=== PATIENT | female | born 1975 | race Caucasian/White ===

== ENCOUNTER 2016-04-08 11:54 | Outpatient (CLI) ==
[2016-04-08 12:21] LABS: BASOPHILS # (AUTO) 0.1 K/uL (0-0.2); BASOPHILS % (AUTO) 0.7 % (0.0-3.0); EOSINOPHILS # (AUTO) 0.1 K/ul (0.0-0.7); EOSINOPHILS % (AUTO) 0.8 % (0.0-7.0); HEMATOCRIT 36.6 % (37.0-47.0); HEMOGLOBIN 12.3 g/dl (12.0-16.0); IMMATURE GRANULOCYTE % (AUTO) 0.4 % (0.0-5.0); LYMPHOCYTES # (AUTO) 2.3 K/uL (0.60-3.4); LYMPHOCYTES % (AUTO) 31.6 (10.0-50.0); MEAN CORPUSCULAR HEMOGLOBIN 29.4 pg (27.0-31.0); MEAN CORPUSCULAR HGB CONC 33.6 (31.8-35.4); MEAN CORPUSCULAR VOLUME 87.4 fl (81.0-99.0); MONOCYTES # (AUTO) 0.4 K/uL (0.4-2.0); MONOCYTES % (AUTO) 5.1 (0-10); NEUTROPHILS # (AUTO) 4.5 K/ul (2.0-6.9); NEUTROPHILS % (AUTO) 61.4; PLATELET COUNT 226 10^3/uL (140-440); RED BLOOD COUNT 4.19 10^6/ul (4.20-5.40); WHITE BLOOD COUNT 7.25 K/ul (4.6-10.2)
[2016-04-08 13:00] LABS: ALBUMIN 3.6 g/dL (3.4-5.0); ALBUMIN/GLOBULIN RATIO 1.09; BILIRUBIN,TOTAL 0.48 mg/dL (0.00-1.20); BUN/CREATININE RATIO 11.95; CALCIUM 8.5 mg/dL (8.2-10.2); CHOL/HDL RATIO 3.9 (4.5-5.5); CREATININE 0.92 mg/dL (0.60-1.30); TOTAL PROTEIN 6.9 g/dL (6.4-8.2)
== END 2016-04-08 11:55 | disposition home or self-care (01) ==
LOC: LAB 11:54
PROVIDERS: ATTEND Internal Medicine
DX: E78.5 Hyperlipidemia, unspecified (principal); D64.9 Anemia, unspecified; I34.1 Nonrheumatic mitral (valve) prolapse
CPT/HCPCS: 36415; 80053; 80061; 83036; 84443; 85025

== ENCOUNTER 2016-07-02 14:38 | Observation (INO) | payer OTHER ==
[2016-07-02] MEDS ORDERED: VISTARIL INJ IM PRN (15:07)
[2016-07-02] MEDS ORDERED: TYLENOL PO PRN (15:07)
[2016-07-02] MEDS ORDERED: NITROSTAT SL PRN (15:07)
[2016-07-02] MEDS ORDERED: ATROPINE SULFATE PFS IVP PRN (15:07)
[2016-07-02] MEDS ORDERED: D5W IV PRN (15:30)
[2016-07-02] MEDS ORDERED: LIDOCAINE IV PRN (15:30)
[2016-07-02] MEDS ORDERED: LIDOCAINE HCL 1% ABBOJECT IVP PRN (15:30)
[2016-07-02 15:51] LABS: BASOPHILS # (AUTO) 0.1 K/uL (0-0.2); BASOPHILS % (AUTO) 0.8 % (0.0-3.0); EOSINOPHILS # (AUTO) 0.1 K/ul (0.0-0.7); EOSINOPHILS % (AUTO) 0.9 % (0.0-7.0); HEMATOCRIT 36.7 % (37.0-47.0); HEMOGLOBIN 12.3 g/dl (12.0-16.0); IMMATURE GRANULOCYTE % (AUTO) 0.3 % (0.0-5.0); LYMPHOCYTES % (AUTO) 40.3 (10.0-50.0); MEAN CORPUSCULAR HEMOGLOBIN 29.1 pg (27.0-31.0); MEAN CORPUSCULAR HGB CONC 33.5 (31.8-35.4); MEAN CORPUSCULAR VOLUME 86.8 fl (81.0-99.0); MONOCYTES # (AUTO) 0.5 K/uL (0.4-2.0); MONOCYTES % (AUTO) 7.1 (0-10); NEUTROPHILS # (AUTO) 3.8 K/ul (2.0-6.9); NEUTROPHILS % (AUTO) 50.6; PLATELET COUNT 246 10^3/uL (140-440); RED BLOOD COUNT 4.23 10^6/ul (4.20-5.40); WHITE BLOOD COUNT 7.49 K/ul (4.6-10.2)
[2016-07-02 16:10] VITALS: BMI 33.1
--- NOTE | 2016-07-02 16:17 | DI ---
EXAM: Chest two view, frontal and lateral views. HISTORY: Chest pain. Hypertension. COMPARISON: None available. FINDINGS: The heart size is normal. There is no pulmonary vascular congestion. The lungs are jose r. No pleural effusion or pneumothorax is seen. No acute osseous abnormality identified. Cholecys tectomy clips noted. IMPRESSION: No acute cardiopulmonary process.
[2016-07-02 16:33] LABS: ALANINE AMINOTRANSFERASE 66 U/L (12-78); ALBUMIN/GLOBULIN RATIO 1.11; ALKALINE PHOSPHATASE 76 U/L (42-98); ANION GAP 11.5; ASPARTATE AMINO TRANSFERASE 43 U/L (15-37); BLOOD UREA NITROGEN 13 mg/dL (7-18); BUN/CREATININE RATIO 12.87; CALCIUM 8.9 mg/dL (8.2-10.2); CARBON DIOXIDE 24 mmol/L (21-32); CHLORIDE 109 mmol/L (98-107); CREATINE KINASE 171 U/L; CREATININE 1.01 mg/dL (0.60-1.30); GLUCOSE 91 mg/dL (70-110); MYOGLOBIN 34 ng/ml; POTASSIUM 3.5 mmol/L (3.5-5.10); SODIUM 141 mmol/L (136-145); TOTAL PROTEIN 7.6 g/dL (6.4-8.2)
--- NOTE | 2016-07-02 16:42 | US ---
EXAM: Ultrasound bilateral carotid duplex HISTORY: Chest pain and hypertension COMPARISON: Carotid Doppler 01/07/2011 TECHNIQUE: Sonographic and color Doppler evaluation of the carotids were performed. FINDINGS: The right carotid is patent in appearance with mild atherosclerotic plaque visualized. The right ICA peak systolic velocity measures 100 cm/sec which is normal. The ICA / CCA peak systolic velocity ratio is 1.3 and ICA end-diastolic velocity is 50 cm/sec. The left carotid is pain in appearance with mild atherosclerotic plaque visualized. The left ICA peak systolic velocity measures 100 cm/sec which is normal. The left ICA / CCA peak systolic velocity ratio is 1.1 and ICA end-diastolic velocity is 50 cm/sec. Vertebral arteries demonstrate antegrade flow bilaterally. IMPRESSION: Bilateral mild atherosclerotic disease with peak systolic velocities within normal limits and no son ographic or Doppler evidence of hemodynamically significant stenosis.
[2016-07-02 16:43] LABS: CREATINE KINASE MB 1.4 ng/ml (0.0-3.6)
[2016-07-02 16:47] LABS: ADD URINE MICROSCOPIC YES; BILIRUBIN,URINE Negative (NEGATIVE); KETONES,URINE Negative (NEGATIVE); LEUKOCYTE ESTERASE ,URINE 2+ (NEGATIVE); NITRITE,URINE Negative (NEGATIVE); PH,URINE 6.5 (5-9); PROTEIN,URINE Negative (NEGATIVE); URINE, BLOOD Trace-lysed (NEGATIVE)
[2016-07-02 16:51] LABS: BACTERIA,URINE 1+ (NOT PRESENT)
[2016-07-02] MEDS: COREG PO SCH (16:59)
[2016-07-02] MEDS: KLONOPIN PO SCH (20:00)
[2016-07-02] MEDS ORDERED: LOVENOX ONE (21:54)
[2016-07-02] MEDS ORDERED: LOVENOX SUBCUT STA (21:55)
[2016-07-02 23:23] LABS: CREATINE KINASE 141 U/L; MYOGLOBIN 24 ng/ml
[2016-07-02 23:24] LABS: CREATINE KINASE MB 1.1 ng/ml (0.0-3.6)
[2016-07-03] MEDS ORDERED: DECADRON 4 MG/ML SDV IM STA (08:01)
[2016-07-03] MEDS ORDERED: LOVENOX SUBCUT SCH ×2 (09:00→21:00)
[2016-07-03] MEDS: COREG PO SCH ×2 (09:06→17:52)
[2016-07-03] MEDS: ASPIRIN EC PO SCH (09:07)
[2016-07-03] MEDS: KLONOPIN PO SCH ×2 (09:07→20:02)
[2016-07-03] MEDS: TORADOL IVP SCH ×3 (09:07→20:03)
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
--- NOTE | 2016-07-03 13:10 | PCM.PROG ---
Attending Provider: ATTENDING PROVIDER: Dr. NISSA BHAKTA DATE OF SERVICE: 07/03/16 SUBJECTIVE: This 40 year old WHITE/ F was hospitalized 07/02/16. The patient is hospitalized with chest pain, hypertension and shortness of breath. The patient has a migraine headache. This morning she had an echocardiogram and stress echo with mitral valve prolapse and normal LV contractility. Stress echocardiogram negative for ischemia. Systolic blood pressure went up to 200 with exercise. REVIEW OF SYSTEMS: CONSTITUTIONAL: No night sweats. No fatigue, malaise, lethargy. No fever or chills. HEENT: Eyes: No visual changes. No eye pain. No eye discharge. ENT: No runny nose. No epistaxis. No sinus pain. No odynophagia. No congestion. RESPIRATORY: No cough, no congestion. No hemoptysis. CARDIOVASCULAR: No angina symptoms. No CHF symptoms. No atypical chest pain for CAD. No palpitations. No shortness of breath. GASTROINTESTINAL: No abdominal pain. No nausea or vomiting. No diarrhea or constipation. No hematemesis. No hematochezia. GENITOURINARY: No urgency. No frequency. No dysuria. No hematuria. No obstructive symptoms. No discharge. No pain. No significant abnormal bleeding. MUSCULOSKELETAL: No musculoskeletal pain; no joint swelling. NEUROLOGICAL: Awake, alert, oriented to time, place and person. Migraine headache. No neck pain. No syncope. No seizures. No dizziness. PSYCHIATRIC: Not anxious. No depression. No suicidal thoughts. No homicidal thoughts. SKIN: No rash. No lesions. No wounds. ENDOCRINE: No unexplained weight loss. No weight gain. HEMATOLOGIC/LYMPHATIC: No anemia. No purpura. No petechiae. No prolonged or excessive bleeding. No palpable lymph nodes. PHYSICAL EXAMINATION: GENERAL: The patient is awake, alert and oriented, lying/sitting in bed in no distress. VITAL SIGNS: Temperature 97.5 F, Pulse 66, Respiratory Rate 16, BP 126/86, Pulse Ox 98% HEENT: Head normocephalic, atraumatic. Eyes: Extraocular muscles are intact. Pupils are equal, round and reactive to light and accommodation. Ears: No lesions. Nose appeared normal. Throat: No exudate or erythema. NECK: Supple. No JVD, no carotid bruit. No lymphadenopathy or thyromegaly. LUNGS: Clear to auscultation. Percussion note normal. Chest symmetrical. HEART: S1, S2, no S3. No murmurs. No cyanosis or clubbing. No ascites. Pulses: Dorsalis pedis and posterior tibial pulses +1 to +2 both sides. ABDOMEN: Soft. Non-tender. Bowel sounds active. No CVA tenderness. No mass felt. EXTREMITIES: No edema. Full range of motion of all extremities, equal. NEUROLOGIC: No focal deficit. Cranial nerves II through XII are grossly intact. Migraine headache, no double vision or headache. SKIN: Not dry. Intact. Turgor-normal. LYMPHATIC: No palpable lymph nodes/no lymphedema. MUSCULOSKELETAL: Normal joints with no swelling. Muscle tone is normal. LAB REVIEW: 07/02/16 15:40 07/02/16 15:40 07/02/16 22:49: Total Creatine Kinase 141, CK-MB (CK-2) 1.1, CK-MB (CK-2) % 0.88999, Myoglobin 24, Troponin I < 0.0100 07/02/16 15:40: WBC 7.49, RBC 4.23, Hgb 12.3, Hct 36.7 L, MCV 86.8, MCH 29.1, MCHC 33.5, RDW Coeff of Jennyfer 13.6, Plt Count 246, Immature Gran % (Auto) 0.3, Neut % (Auto) 50.6, Lymph % (Auto) 40.3, Barnwell % (Auto) 7.1, Eos % (Auto) 0.9, Baso % (Auto) 0.8, Immature Gran # (Auto) 0.0, Neut # 3.8, Lymph # 3.0, Barnwell # 0.5, Eos # 0.1, Baso # 0.1, D-Dimer (Manual) 342.60, Sodium 141, Potassium 3.5, Chloride 109 H, Carbon Dioxide 24, Anion Gap 11.5, BUN 13, Creatinine 1.01, Estimated GFR (MDRD) 61.00, BUN/Creatinine Ratio 12.87, Glucose 91, Calcium 8.9 , Total Bilirubin 0.30, AST 43 H, ALT 66, Alkaline Phosphatase 76, Total Creatine Kinase 171, CK-MB (CK-2) 1.4, CK-MB (CK-2) % 0.12980, Myoglobin 34, Troponin I < 0.0100, B-Natriuretic Peptide 26, Total Protein 7.6, Albumin 4.0, Globulin 3.6, Albumin/Globulin Ratio 1.11, TSH 0.897, Free T4 1.02 07/02/16 15:20: Urine Color Yellow, Urine Clarity Clear, Urine pH 6.5, Ur Specific Raymond 1.020, Urine Protein Negative, Urine Glucose (UA) Negative, Urine Ketones Negative, Urine Blood Trace-lysed, Urine Nitrite Negative, Urine Bilirubin Negative, Urine Urobilinogen 0.2, Ur Leukocyte Esterase 2+, Urine Microscopic RBC 5-10, Urine Microscopic WBC 5-10, Ur Squamous Epith Cells 5-10, Urine Bacteria 1+ ASSESSMENT: 1. Migraine headache 2. Chest pain seems noncardiac 3. BMI 33 4. Sedentary lifestyle 5. Family history of heart disease 6. Dyslipidemia 7. Hypertension PLAN: 1. D. dimer negative 2. Toradol 30 mg IV 3. 1 cc Decadron 4. Will also do MRI of brain for patient's history of questionable seizure disorder a long time ago and headaches with dizziness. Plan and coordination of the patient's care discussed in the presence of [employer] Operator and nurse. EDUCATION: Education carried out about CAD risk factors and how to modify. May have to add angiotensin receptor akira along with Coreg. CONDITION: Stable SCRIBED BY: TIARA DSOUZA Nip Wrapper scribed while in presence of service performed by Dr. NISSA BHAKTA on 07/03/16 ([id number])
--- NOTE | 2016-07-03 14:22 | MRI ---
EXAM: MRI brain without and with IV contrast. DATE: 07/03/2016. HISTORY: Headaches, elevated blood pressure. Patient reports history of seizures. TECHNIQUE: Sagittal T1W pre and postcontrast, axial T2W, axial FLAIR, axial T1W pre and postcontras t, axial DWI, coronal T1W postcontrast, and coronal T2W GRE sequences of the brain were obtained usi ng 1.2 Tresa magnet. Additional coronal thin slice FLAIR sequence through the temporal lobes was pe rformed. CONTRAST: Omniscan - 13 ml IV. COMPARISON: MRI brain 05/02/2011. FINDINGS: The ventricles, cisterns, and subarachnoid spaces are normal in size and configuration. No midline shift, mass effect or abnormal extra-axial fluid collection is apparent. No acute infarc t, hemorrhage or enhancing neoplasm is identified. No abnormal contrast enhancement is identified i n the brain, meninges or dura. Minimal T2W/FLAIR hyperintensity is observed in the white matter abu tting the anterior horn of each lateral ventricle. A few 2-4 mm, T2W/FLAIR bright foci without abno rmal enhancement are scattered in the subcortical white matter of both frontal lobes. The liu - wh ite matter differentiation is normal. No migration or diverticulation abnormality is identified. T he amygdala, hippocampus, and parahippocampal gyri are symmetric and normal bilaterally. The fornic es and hypothalamus appear normal. The 7th/8th cranial nerve complexes, cerebellopontine angles, br ainstem, and visible cervical spinal cord are normal. There is approximately 2 mm right cerebellar tonsillar ectopia. The pituitary gland is normal in size and has normal signal. Corpus callosum is normal in size and configuration. Flow voids are present in the major intracranial arteries and in the dural venous sinuses. No aneurysm, AVM or dural venous sinus thrombosis is apparent. No orbit abnormality is identified. A small number of bilateral mastoid air cells demonstrate T2W bright, T 1W intermediate signal without abnormal hyperenhancement, similar to April 2011 . There is no acute sinusitis. No neck mass or lymphadenopathy is detected. No calvarial neoplasm or acute fracture i s evident. T1W bone marrow signal is similar to that of the intervertebral discs and muscles. IMPRESSIONS: 1. No acute infarct, hemorrhage, enhancing mass, or hydrocephalus 2. Minor low-lying right cerebellar tonsil. No Chiari 1 malformation. 3. Minimal, nonspecific cerebral white matter disease, unchanged. 4. No mesial temporal sclerosis detected. 5. Chronic, small bilateral mastoid effusions. 6. T1W bone marrow signal is borderline dark. DDX: Normal variation vs red marrow reconversion. Correlate for anemia.
[2016-07-03] MEDS ORDERED: ZOFRAN 4 MG/2 ML ONE (18:09)
[2016-07-03] MEDS ORDERED: ZOFRAN 4 MG/2 ML IVP STA ×2 (18:10→22:24)
[2016-07-03] MEDS: MORPHINE 4 MG/ML SYRINGE IVP PRN ×2 (18:15→22:23)
[2016-07-04] MEDS ORDERED: ZOFRAN 4 MG/2 ML IVP PRN (02:13)
[2016-07-04] MEDS: MORPHINE 4 MG/ML SYRINGE IVP PRN (02:24)
[2016-07-04] MEDS: TORADOL IVP SCH ×2 (05:43→13:00)
[2016-07-04] MEDS ORDERED: MILK OF MAGNESIA PO PRN (08:08)
[2016-07-04] MEDS ORDERED: PROTONIX PO SCH (08:30)
[2016-07-04] MEDS: ASPIRIN EC PO SCH (08:47)
[2016-07-04] MEDS: COREG PO SCH (08:47)
[2016-07-04] MEDS: KLONOPIN PO SCH (08:47)
[2016-07-04] MEDS ORDERED: COLACE PO SCH (09:00)
--- NOTE | 2016-07-04 10:47 | ECHO2D ---
Date of Exam: 07/03/16 Ordering Physician: NISSA BHAKTA Reason for Echo: CHEST PAIN, HTN, MVP, PATENT FORAMON OVALE M-Mode Normal Adult Results LV Dimensions Normal Adult Results AoV Opening excursions >1.6 >1.6 LVEDD-base- 3.5-5.8 3.9 Ao root dimensions 2.0-3.7 2.8 LVESD-base- 3.1-4.6 L. Atrium dimensions 1.9-3.8 3.5 Post. Wall thickness 0.8-1.1 0.9 IV septum (thickness) 0.7-1.2 0.9 Post. Wall excursion 0.72-1.3 NORMAL Septal motion NORMAL Systolic motion R. Ventricular cavity 1.5-2.0 NORMAL LVEF 60% >50% Paradoxical septal wall motion NORMAL 2-D : MITRAL VALVE PROLAPSE NOTED LEFT PARASTERNAL LONG AXIS VIEW AND APICAL FOUR CHAMBER VIEW--NORMAL LEFT VENTRICLE CONTRACTILITY--NO EFFUSION, NO THROMBUS , NORMAL LEFT VENTRICLE AND LEFT ATRIAL SIZE M-MODE: MV: MITRAL VALVE PROLAPSE LATE SYSTOLIC AV: NORMAL TV: NORMAL PV: NORMAL CHAMBER SIZE: NORMAL WALL MOTION: NORMAL PERICARDIUM: NORMAL INTERPRETATION: 1. MITRAL VALVE PROLAPSE LATE SYSTOLIC, OTHERWISE ALL OTHER VALVES NORMAL 2. NORMAL LEFT VENTRICULAR CONTRACTILITY 3. NORMAL LEFT ATRIAL AND LEFT VENTRICLE SIZE MTDD
--- NOTE | 2016-07-04 10:55 | STRESSECHO ---
Date of Test: 07/03/16 Reason for Exam: CHEST PAIN, HTN, MVP, PFO Ordering Physician: NISSA BHAKTA Current Medications: KLONOPIN, COREG, LOVENOX Current Medications: KLONOPIN, COREG, LOVENOX Resting EKG: SINUS RHYTHM/NO ACUTE CHANGES Target Heart Rate: 153/181 STAGE MPH/GRADE HEART RATE BPM BLOOD PRESSURE mmhg RHYTHM S-T SEGMENT +/- UP DOWN SYMPTOMS,COMMENTS At Rest 80 130/88 SR X NONE 1 1.7/10% 118 180/96 SR X NONE 2 2.5/12% 3 3.4/14% 4 4.2/16% 5 5.0/18% Immediately after 146 200/88 SR X FATIGUE Durations of Exercise: 4:58 Maximum Heart Rate Reached: 146 Reason for Termination: FATIGUE 5 MIN POST EXERCISE: HR 100 BPM, BP 152/84 MMHG, SR, +/- INTERPRETATION: 99% OXYGEN SATURATION WITH EXERCISE ON ROOM AIR 1. TEST NEGATIVE FOR ISCHEMIC ST-T WAVE CHANGES 2. NO CHEST PAIN OR CHEST DISCOMFORT 3. NO ARRHYTHMIAS 4. BLOOD PRESSURE RESPONSE: NORMAL NORMAL LEFT VENTRICULAR CONTRACTILITY--RESTING AND POST EXERCISE MTDD
--- NOTE | 2016-07-04 10:58 | ECHOSTRESS ---
Date of Exam: 07/03/16 Ordering Physician: NISSA BHAKTA Reason for Echo: CHEST PAIN, MVP, PFO, HTN, STRESS TEST--NO ISCHEMIA M-Mode Normal Adult Results LV Dimensions Normal Adult Results AoV Opening excursions >1.6 LVEDD-base- 3.5-5.8 Ao root dimensions 2.0-3.7 LVESD-base- 3.1-4.6 L. Atrium dimensions 1.9-3.8 Post. Wall thickness 0.8-1.1 IV septum (thickness) 0.7-1.2 Post. Wall excursion 0.72-1.3 Septal motion Systolic motion R. Ventricular cavity 1.5-2.0 LVEF 60% Paradoxical septal wall motion 2-D: NORMAL LEFT VENTRICULAR CONTRACTILITY--RESTING AND POST EXERCISE M-MODE: MV: AV: TV: PV: CHAMBER SIZE: WALL MOTION: NORMAL LEFT VENTRICULAR CONTRACTILITY--RESTING AND POST EXERCISE PERICARDIUM: INTERPRETATION: 1. NORMAL LEFT VENTRICULAR CONTRACTILITY--RESTING AND POST EXERCISE MTDD
[2016-07-04 14:58] VITALS: BP 125/73; TEMP 98
--- NOTE | 2016-07-08 13:31 | PN ---
DATE OF SERVICE: 07/04/16 DISCHARGE NOTE SUBJECTIVE: The patient is a 40 year old white female hospitalized with chest pain and hypertension. The patient's work up for chest pain is negative for coronary insufficiency. The patient is feeling a lot better. Her stress echo was negative for ischemia. Her echo showed mitral valve prolapse. Blood pressure is under control and in fact it is on the lower side. She has been restarted on Coreg 6.25mg twice a day. The patient's present problem is migraine headache which has been brought under control with Morphine, IV Toradol, IV Decadron and feeling somewhat better but still has a migraine headaches. REVIEW OF SYSTEMS: CONSTITUTIONAL: No night sweats. No fatigue, malaise, lethargy. No fever or chills. HEENT: Eyes: No visual changes. No eye pain. No eye discharge. ENT: No runny nose. No epistaxis. No sinus pain. No sore throat. No odynophagia. No congestion. RESPIRATORY: No cough, no congestion. No hemoptysis. CARDIOVASCULAR: No angina symptoms. No CHF symptoms. No atypical chest pain for CAD. No palpitations. No shortness of breath. GASTROINTESTINAL: No abdominal pain. No nausea or vomiting. No diarrhea or constipation. No hematemesis. No hematochezia. GENITOURINARY: No urgency. No frequency. No dysuria. No hematuria. No obstructive symptoms. No discharge. No pain. No significant abnormal bleeding. MUSCULOSKELETAL: No musculoskeletal pain; no joint swelling. NEUROLOGICAL: Migraine headache. No neck pain. No syncope. No seizures. No dizziness. PSYCHIATRIC: Not anxious. No depression. No suicidal thoughts. No homicidal thoughts. SKIN: No rash. No lesions. No wounds. ENDOCRINE: No unexplained weight loss. No weight gain. HEMATOLOGIC/LYMPHATIC: No anemia. No purpura. No petechiae. No prolonged or excessive bleeding. No palpable lymph nodes. PHYSICAL EXAMINATION: GENERAL: The patient is oriented to time, place and person. VITAL SIGNS: Temperature 97.8, pulse 67, respiratory rate 12, blood pressure 99 /65 and pulse ox 98%. HEENT: Head normocephalic, atraumatic. Eyes: Extraocular muscles are intact. Pupils are equal, round and reactive to light and accommodation. Ears: No lesions. Nose appeared normal. Throat: No exudate or erythema. NECK: Supple. No JVD, no carotid bruit. No lymphadenopathy or thyromegaly. LUNGS: Clear to auscultation. Percussion note normal. Chest symmetrical. HEART: S1, S2, no S3. No murmurs. No cyanosis or clubbing. No ascites. Pulses: Dorsalis pedis and posterior tibial pulses +1 to +2 both sides. ABDOMEN: Soft. Nontender. Bowel sounds active. No CVA tenderness. No mass felt. EXTREMITIES: No edema. Full range of motion of all extremities, equal. NEUROLOGIC: No focal deficit. Cranial nerves II through XII are grossly intact. No headache, no double vision or headache. SKIN: Not dry. Intact. Turgor - normal. LYMPHATIC: No palpable lymph nodes/no lymphedema. MUSCULOSKELETAL: Normal joints with no swelling. Muscle tone is normal. LABS: Hgb 12.3, hct 36.7, WBC 7,400 normal differential, creatinine1 , BUN 13, potassium 3.5, D-dimer negative, T4 TSH normal, BNP 26, CK-MB negative. ASSESSMENT: 1.Chest pain likely etiology muscular skeletal, discuss with the patient coronary artery disease and risk factors and how to modify them. 2. Migraine head aches, The patient strongly advise to get followup again with Dr. Sesay who is a neurologist who had seen her for seizure disorder more than 5 years ago. She has declined for now 3. Hypertension, the patient is advised DASH diet and loose weight; BMI is 33 ideal should be 33 plus or minus 2. Weight loss diet discussed with the patient. 4. Fibromyalgia and exercise. Advised that patient needs to exercise 30 to 60 minute a day, 5 days a week. 5. Anxiety disorder, the patient is on Klonopin by Vicente Verde at [facility]. Advised to followup with Dr[facility] at [place]. PLAN: 1. The patient will be discharged home 2. New medication will be Coreg 6.25mg twice a day and baby Aspirin one a day 3. I will see her in 5-7 days. CONDITION: Stable. TIME SPENT: More than 30 minutes. Plan and coordination of the patient's care discussed in the presence of nurse. JUMA
--- NOTE | 2016-07-08 13:37 | DS ---
DATE OF SERVICE: 07/04/16 FINAL DIAGNOSIS: 1.Chest pain likely etiology muscular skeletal, discuss with the patient coronary artery disease and risk factors and how to modify them. 2. Migraine head aches, The patient strongly advise to get followup again with Dr. Sesay who is a neurologist who had seen her for seizure disorder more than 5 years ago. She has declined for now 3. Hypertension, the patient is advised DASH diet and loose weight; BMI is 33 ideal should be 33 plus or minus 2. Weight loss diet discussed with the patient. 4. Fibromyalgia and exercise. Advised that patient needs to exercise 30 to 60 minute a day, 5 days a week. 5. Anxiety disorder, the patient is on Klonopin by Vicente Verde at [facility]. Advised to followup with Dr. [facility] at [place]. DISCHARGE INSTRUCTIONS: Discharge the patient home. Instruction to come back in 5-7 days on followup. MEDICATIONS AT DISCHARGE: Klonopin 2mg PO daily PRN Coreg 6.25mg PO twice a day NEW PRESCRIPTIONS: Coreg 6.25mg PO twice a day Baby Aspirin DIET INSTRUCTIONS: As tolerated ACTIVITY: As tolerated SMOKING: Never Smoker DISEASE SPECIFIC EDUCATION: Migraine headaches New medication Followup Weight loss DASH diet HOSPITAL COURSE: The patient is a 40 year old white female hospitalized with chest pain and hypertension. The patient's work up for chest pain is negative for coronary insufficiency. The patient is feeling a lot better. Her stress echo was negative for ischemia. Her echo showed mitral valve prolapse. Blood pressure is under control and in fact it is on the lower side. She has been restarted on Coreg 6.25mg twice a day. The patient's present problem is migraine headache which has been brought under control with Morphine, IV Toradol, IV Decadron and feeling somewhat better but still has a migraine headaches. TIME SPENT: More than 60 minutes. MTDD
== END 2016-07-04 16:17 | disposition home or self-care (01) ==
LOC: MEDSURG B 14:38
PROVIDERS: ADMIT Internal Medicine; ATTEND Internal Medicine
DX: R07.89 Other chest pain (principal); G43.909 Migraine, unspecified, not intractable, without status migrainosus; I34.1 Nonrheumatic mitral (valve) prolapse; R06.02 Shortness of breath; I10 Essential (primary) hypertension; M79.7 Fibromyalgia; F41.9 Anxiety disorder, unspecified; G40.909 Epilepsy, unspecified, not intractable, without status epilepticus; Z82.49 Family history of ischemic heart disease and other diseases of the circulatory system; Z68.33 Body mass index [BMI] 33.0-33.9, adult; Z72.3 Lack of physical exercise; Z79.899 Other long term (current) drug therapy
CPT/HCPCS: 36415; 80053; 81001; 82550; 82553; 83874; 83880; 84439; 84443; 84484; 85025; 85379; 87086; 93005; 93010; 96372; 96374; 96375; 96376

== ENCOUNTER 2016-11-05 12:03 | Outpatient (CLI) ==
[2016-11-05 12:27] LABS: BASOPHILS # (AUTO) 0.1 K/uL (0-0.2); BASOPHILS % (AUTO) 0.9 % (0.0-3.0); EOSINOPHILS # (AUTO) 0.1 K/ul (0.0-0.7); EOSINOPHILS % (AUTO) 0.9 % (0.0-7.0); HEMATOCRIT 38.1 % (37.0-47.0); HEMOGLOBIN 12.7 g/dl (12.0-16.0); IMMATURE GRANULOCYTE % (AUTO) 0.3 % (0.0-5.0); LYMPHOCYTES # (AUTO) 2.7 K/uL (0.60-3.4); LYMPHOCYTES % (AUTO) 36.4 (10.0-50.0); MEAN CORPUSCULAR HEMOGLOBIN 29.3 pg (27.0-31.0); MEAN CORPUSCULAR HGB CONC 33.3 (31.8-35.4); MEAN CORPUSCULAR VOLUME 87.8 fl (81.0-99.0); MONOCYTES # (AUTO) 0.4 K/uL (0.4-2.0); MONOCYTES % (AUTO) 5.6 (0-10); NEUTROPHILS # (AUTO) 4.2 K/ul (2.0-6.9); NEUTROPHILS % (AUTO) 55.9; PLATELET COUNT 262 10^3/uL (140-440); RED BLOOD COUNT 4.34 10^6/ul (4.20-5.40); WHITE BLOOD COUNT 7.49 K/ul (4.6-10.2)
[2016-11-05 13:31] LABS: ALBUMIN 3.9 g/dL (3.4-5.0); ANION GAP 14.5; BILIRUBIN,TOTAL 0.29 mg/dL (0.00-1.20); BUN/CREATININE RATIO 16.47; CALCIUM 9.4 mg/dL (8.2-10.2); CHOL/HDL RATIO 5.6 (4.5-5.5); CREATININE 0.85 mg/dL (0.60-1.30); POTASSIUM 4.5 mmol/L (3.5-5.10); TOTAL PROTEIN 7.8 g/dL (6.4-8.2)
== END 2016-11-05 12:04 | disposition home or self-care (01) ==
LOC: LAB 12:03
PROVIDERS: ATTEND Internal Medicine
DX: E78.5 Hyperlipidemia, unspecified (principal); I10 Essential (primary) hypertension; E66.9 Obesity, unspecified
CPT/HCPCS: 36415; 80053; 80061; 82306; 82607; 83036; 84443; 85025

== ENCOUNTER 2017-03-13 19:03 | Observation (INO) ==
[2017-03-13] MEDS ORDERED: VISTARIL INJ IM PRN (19:22)
[2017-03-13] MEDS ORDERED: ATROPINE SULFATE PFS IVP PRN (19:22)
[2017-03-13] MEDS ORDERED: TYLENOL PO PRN (19:22)
[2017-03-13] MEDS ORDERED: NITROSTAT SL PRN (19:22)
--- NOTE | 2017-03-13 20:38 | DI ---
EXAM: Single view of the chest. History: Chest pain. Comparison: Chest radiograph 07/02/2016 Findings: Heart size is normal. No focal consolidation. No appreciable pleural fluid and no pneumo thorax. No acute osseous abnormalities. Impression: No acute cardiopulmonary process.
[2017-03-13 20:59] VITALS: BMI 29.9
[2017-03-13] MEDS ORDERED: NON-FORMULARY MEDICATION (Clonazepam [Klonopin] 1 MG) PO SCH (21:00)
[2017-03-13] MEDS ORDERED: PROZAC PO SCH (21:00)
[2017-03-13] MEDS ORDERED: KLONOPIN ONE (22:05)
[2017-03-13] MEDS ORDERED: PROZAC ONE (22:06)
[2017-03-14] MEDS: ASPIRIN EC PO SCH (08:45)
[2017-03-14] MEDS: COREG PO SCH ×2 (08:45→16:42)
[2017-03-14] MEDS ORDERED: KLONOPIN PO SCH ×2 (09:00→21:00)
[2017-03-14] MEDS ORDERED: ASPIRIN EC PO SCH (09:00)
[2017-03-14] MEDS ORDERED: NON-FORMULARY MEDICATION (Clonazepam [Klonopin] 0.5 MG) PO SCH (09:00)
--- NOTE | 2017-03-14 10:22 | US ---
EXAM: ULTRASOUND CAROTID DUPLEX, BILATERAL HISTORY: Headache, dizziness FINDINGS: Pérez-scale ultrasound, color Doppler and spectral analysis was performed. Velocities are in meters per second. By pérez scale and color Doppler imaging, there appears to be only minimal intimal thickening and scat tered atherosclerotic plaque in both carotid systems, including the bulbs and internal carotid arteri es. RIGHT: External carotid artery peak systolic velocity: 0.8 Common carotid artery peak systolic velocity/end diastolic velocity: 0.9/0.3 Internal carotid artery peak systolic velocity: 0.8 ICA/CCA peak systolic velocity ratio: 1.0 ICA end diastolic velocity: 0.3 LEFT: External carotid artery peak systolic velocity: 0.7 Common carotid artery peak systolic velocity/end diastolic velocity: 0.99/0.3 Internal carotid artery peak systolic velocity: 0.7 ICA/CCA peak systolic velocity ratio: 1.0 ICA end diastolic velocity: 0.3 The right and left vertebral arteries were antegrade. IMPRESSION: 1. By pérez scale and color Doppler imaging, there appears to be only minimal intimal thickening and scattered atherosclerotic plaque in both carotid systems, including the bulbs and internal carotid ar teries. 2. Internal carotid artery peak systolic velocities and ICA/CCA peak systolic velocity ratios indica te no hemodynamically significant stenosis bilaterally. 3. Both vertebral arteries were antegrade.
--- NOTE | 2017-03-14 10:38 | MRI ---
EXAM: MRI brain without and with IV contrast. DATE: 03/14/2017. HISTORY: Dizziness. Weight loss. Family history of cancer. TECHNIQUE: Sagittal T1W pre and postcontrast, axial T2W, axial FLAIR, axial T1W pre and postcontrast , axial DWI, coronal T1W postcontrast, and coronal T2W GRE sequences of the brain were obtained using 1.2 Tresa magnet. CONTRAST: Omniscan - 13 ml IV. COMPARISON: CT head 01/06/2011. MRI brain 07/03/2016. FINDINGS: The ventricles, cisterns, and subarachnoid spaces are normal in size and configuration. N o midline shift, mass effect or abnormal extra-axial fluid collection is apparent. No acute infarct, hemorrhage or enhancing neoplasm is identified. No abnormal contrast enhancement is identified in t he brain, meninges or dura. Minor T2W/FLAIR hyperintensity is observed in the white matter abutting each lateral ventricle. A handful of 2-4 mm diameter, T2W/FLAIR bright, non-enhancing foci scattered in the bilateral frontal lobe subcortical white matter is similar to June 2016. The liu - white mat ter differentiation is normal. No migration or diverticulation abnormality is identified. The amygd ala, hippocampus, and parahippocampal gyri are similar bilaterally. The 7th/8th cranial nerve comple xes, cerebellopontine angles, brainstem, and visible cervical spinal cord are normal. There is appro ximate 1.5 mm right cerebellar tonsillar ectopia. The pituitary gland is normal in size and signal. Corpus callosum is normal in size and configuration. Flow voids are present in the major intracrani al arteries and in the dural venous sinuses. No aneurysm, AVM or dural venous sinus thrombosis is ap parent. No orbit abnormality is identified. Right mastoid air cells are unremarkable. A few inferi or left mastoid air cells have T2W bright, T1W intermediate signal without abnormal enhancement. The re is no acute sinusitis. Mild adenoid tissue prominence appears benign. No neck mass or lymphadeno fabi is detected. No calvarial neoplasm or acute fracture is evident. T1W bone marrow signal is sim ilar to that of the intervertebral discs. IMPRESSIONS: 1. No acute infarct, hemorrhage, enhancing neoplasm or hydrocephalus. 2. Minor low-lying right cerebellar tonsil. No Chiari 1 malformation. 3. Minor, nonspecific cerebral leukomalacia - DDX: Small vessel disease is likely. Chronic hyperte nsive encephalopathy or vasculitis may also be considered. Sequela of infection, demyelinating disea se, or metabolic disorder are significantly less likely. 4. Chronic, minor left mastoid effusion. 5. Borderline T1W bone marrow signal, similar to June 2016. Although this may be normal variation, r ed marrow hyperplasia / red marrow reconversion may look similar. If patient is not anemic, this is likely nor mal variation.
[2017-03-14] MEDS ORDERED: TORADOL IVP STA (14:28)
[2017-03-14] MEDS: ZOFRAN 4 MG/2 ML IVP PRN ×2 (14:59→22:49)
[2017-03-14] MEDS: PROZAC PO SCH (20:46)
[2017-03-14] MEDS: KLONOPIN PO SCH (20:46)
[2017-03-14] MEDS ORDERED: XOPENEX 1.25 MG NEB PRN (22:17)
[2017-03-14] MEDS ORDERED: XANAX PO STA (22:25)
[2017-03-14] MEDS: TORADOL IVP PRN (23:01)
[2017-03-15] MEDS: ZOFRAN 4 MG/2 ML IVP PRN ×3 (05:09→20:50)
[2017-03-15] MEDS: MORPHINE 4 MG/ML VIAL IVP PRN ×2 (05:09→20:50)
[2017-03-15] MEDS: ASPIRIN EC PO SCH (09:17)
[2017-03-15] MEDS: KLONOPIN PO SCH ×2 (09:17→20:49)
[2017-03-15] MEDS: COREG PO SCH ×2 (09:17→16:42)
[2017-03-15] MEDS: ANTIVERT PO PRN ×2 (14:59→20:49)
[2017-03-15] MEDS: PROZAC PO SCH (20:49)
[2017-03-16] MEDS: TORADOL IVP PRN (03:26)
[2017-03-16] MEDS: COREG PO SCH (08:23)
[2017-03-16] MEDS: ASPIRIN EC PO SCH (08:23)
[2017-03-16] MEDS: KLONOPIN PO SCH (08:24)
[2017-03-16 10:34] VITALS: BP 108/62; TEMP 97.9
--- NOTE | 2017-03-17 07:58 | STRESSECHO ---
Date of Test: 03/14/17 Reason for Exam: CHEST PAIN, MVP, PFO, FAMILY H/O MII Ordering Physician: DR. NISSA BHAKTA Current Medications: CLONAZEPAM, FLUOXETINE, ASA Physical Findings: S1, S2, NO S3 Resting EKG: SINUS RHYTHM/ NO ACUTE CHANGES Target Heart Rate: 153/180 STAGE MPH/GRADE HEART RATE BPM BLOOD PRESSURE mmhg RHYTHM S-T SEGMENT +/- UP DOWN SYMPTOMS,COMMENTS At Rest 63 116/58 SR X NONE 1 1.7/10% 112 100/50 SR X NONE 2 2.5/12% 132 120/60 SR X NONE 3 3.4/14% 4 4.2/16% 5 5.0/18% Immediately after 150 140/70 SR X FATIGUE Durations of Exercise: 6:45 Maximum Heart Rate Reached: 150 Reason for Termination: FATIGUE 4 MINUTES POST EXERCISE: HR 96 BPM, BP 126/70 MMHG INTERPRETATION: 99% OXYGEN SATURATION WITH EXERCISE ON ROOM AIR 1. NO EVIDENCE OF ISCHEMIA BY ST-T WAVE 2. NO CHEST PAIN OR DISCOMFORT 3. BLOOD PRESSURE RESPONSE: NORMAL 4. NO ARRHYTHMIAS NORMAL LEFT VENTRICULAR CONTRACTILITY RESTING AND POST EXERCISE [facility]Y [facility]
--- NOTE | 2017-03-17 08:16 | ECHOSTRESS ---
Date of Exam: 03/14/17 Ordering Physician: DR. NISSA BHAKTA Reason for Echo: CHEST PAIN, HX MVP,PVO, STRESS TEST--NO ISCHEMIA M-Mode Normal Adult Results LV Dimensions Normal Adult Results AoV Opening excursions >1.6 LVEDD-base- 3.5-5.8 Ao root dimensions 2.0-3.7 LVESD-base- 3.1-4.6 L. Atrium dimensions 1.9-3.8 Post. Wall thickness 0.8-1.1 IV septum (thickness) 0.7-1.2 Post. Wall excursion 0.72-1.3 Septal motion Systolic motion R. Ventricular cavity 1.5-2.0 LVEF 60% Paradoxical septal wall motion 2-D: NORMAL LEFT VENTRICULAR CONTRACTILITY--RESTING AND POST EXERCISE M-MODE: MV: AV: TV: PV: CHAMBER SIZE: WALL MOTION: NORMAL LEFT VENTRICULAR CONTRACTILITY--RESTING AND POST EXERCISE PERICARDIUM: INTERPRETATION: 1. NORMAL LEFT VENTRICULAR CONTRACTILITY--RESTING AND POST EXERCISE MTDD
--- NOTE | 2017-03-17 08:44 | ECHO2D ---
Date of Exam: 03/14/17 Ordering Physician: DR. NISSA BHAKTA Room #: [id number] Reason for Echo: MVP, PATENT [place], CHEST PAIN M-Mode Normal Adult Results LV Dimensions Normal Adult Results AoV Opening excursions >1.6 >1.6 LVEDD-base- 3.5-5.8 4.5 Ao root dimensions 2.0-3.7 3.0 LVESD-base- 3.1-4.6 L. Atrium dimensions 1.9-3.8 3.8 Post. Wall thickness 0.8-1.1 1.0 IV septum (thickness) 0.7-1.2 1.0 Post. Wall excursion 0.72-1.3 NORMAL Septal motion NORMAL Systolic motion R. Ventricular cavity 1.5-2.0 NORMAL LVEF 60% 60% Paradoxical septal wall motion NORMAL 2-D : 2-D M Mode Echocardiogram was performed using apical four chamber and left parasternal long and short axis views. Tricuspid and aortic valves appear to be normal. Contractility of the left ventricle seems to be normal, so is the cavity size. Left atrial cavity size and aortic root appear to be normal. There is no pericardial effusion. There is no thrombus noted in the left ventricular or left aortic cavity. Mitral Valve Prolapse noted left parasternal long axis and apical four chamber view. M-MODE: MV: MITRAL VALVE PROLAPSE NOTED--LATE SYSTOLIC AV: NORMAL TV: NORMAL PV: CHAMBER SIZE: NORMAL WALL MOTION: NORMAL PERICARDIUM: NORMAL INTERPRETATION: 1. MITRAL VALVE PROLAPSE LATE SYSTOLIC 2. NORMAL LEFT VENTRICULAR CONTRACTILITY 3. NORMAL LEFT VENTRICLE AND LEFT ATRIAL SIZE MTDD
--- NOTE | 2017-03-17 15:47 | HP ---
DATE OF SERVICE: 03/13/17 REASON FOR HOSPITALIZATION: Chest pain HISTORY OF PRESENT ILLNESS: 41 year old white female was seen on 03/12/17 with chest pain. The patient was advised hospitalization but there was no bed in the hospital so she was advised to go to other emergency room and got hospitalized which she declined. Today she was called and she continued to have chest pain so she was advised hospitalization after waiting for all afternoon bed arrangement was made for her and she was eventually hospitalized. The patient's chest pain is center of the chest going to the jaw on the left side with left arm pain. It is exertion as well as nonexertional along with shortness of breath. The patient is under a lot of stress with good family support. The patient is understanding. PAST MEDICAL HISTORY/ PAST SURGICAL HISTORY: Dyslipidemia History of mitral valve prolapse. Questionable seizure disorder followed by the Neurologist Dr. Sesay. Status post cholecystectomy Hypertension History fo migraine headaches Generalized anxiety disorder Carpel tunnel syndrome Fibromyalgia REVIEW OF SYSTEMS: CONSTITUTIONAL: No night sweats. Fatigue and weakness. No fever or chills. HEENT: Eyes: No visual changes. No eye pain. No eye discharge. ENT: No runny nose. No epistaxis. No sinus pain. No sore throat. No odynophagia. No ear pain. No congestion. RESPIRATORY: No cough, no congestion. No hemoptysis. CARDIOVASCULAR: No angina symptoms. No CHF symptoms. No atypical chest pain for CAD. No palpitations. No orthopnea. Chest pain center of the chest tightness going to the left side of the neck and left shoulder, nonexertional as well as exertional with shortness of breath off and on. GASTROINTESTINAL: No abdominal pain. No nausea or vomiting. No diarrhea or constipation. No hematemesis. No hematochezia. No evidence of any reflux problems. GENITOURINARY: No urgency. No frequency. No dysuria. No hematuria. No obstructive symptoms. No discharge. No pain. No significant abnormal bleeding. MUSCULOSKELETAL: No musculoskeletal pain. No joint swelling. Arthritic pain NEUROLOGICAL: No headache. No neck pain. No syncope. No seizures. Mild dizziness. PSYCHIATRIC: Anxious. mild depression. No suicidal thoughts. No homicidal thoughts. SKIN: No rash. No lesions. No wounds. Dry. Mucosa membranes no rash. ENDOCRINE: No unexplained weight loss. No weight gain. HEMATOLOGIC/LYMPHATIC: No anemia. No purpura. No petechiae. No prolonged or excessive bleeding. No palpable lymph nodes. PERSONAL/FAMILY/SOCIAL HISTORY: The patient is . No smoker, no alcohol abuse. The patient does all activity of daily living. Very intelligent person. Family History of heart disease, mother had heart problems, hypertension. MEDICATIONS: Klonopin 0.5mg PO daily Coreg 6.25mg Po twice a day Klonopin 1mg PO bedtime Prozac 20mg Po bedtime Aspirin 81mg PO daily ALLERGIES: Pseudoephedrine Sumatriptan Triprolidine PHYSICAL EXAMINATION: GENERAL: The patient is oriented to time, place and person. VITAL SIGNS: Temperature 98, pulse 65, respiratory rate 110, blood pressure 110 /70 and pulse ox 99%. Weighs 155 pounds and height 5'0, BMI 28. HEENT: Head normocephalic, atraumatic. Eyes: Extraocular muscles are intact. Pupils are equal, round and reactive to light and accommodation. Ears: No lesions. Nose appeared normal. Throat: No exudate or erythema. NECK: Supple. No JVD, no carotid bruit. No lymphadenopathy or thyromegaly. LUNGS: Clear to auscultation. Percussion note normal. Chest symmetrical. HEART: S1, S2, no S3. No murmurs. No cyanosis or clubbing. No ascites. Pulses: Dorsalis pedis and posterior tibial pulses +1 to +2 both sides. ABDOMEN: Soft. Nontender. Bowel sounds active. No CVA tenderness. No mass felt. EXTREMITIES: No edema. Full range of motion of all extremities, equal. NEUROLOGIC: No focal deficit. Cranial nerves II through XII are grossly intact. No headache, no double vision or headache. SKIN: Not dry. Intact. Turgor - normal. LYMPHATIC: No palpable lymph nodes/no lymphedema. MUSCULOSKELETAL: Normal joints with no swelling. Muscle tone is normal. LABS: EKG done yesterday showed sinus rhythm, no acute changes, bradycardia ASSESSMENT: 1. Chest pain, etiology unknown; chest pain equivocal for coronary insufficiency 2. Coronary artery disease and risk factors 3. Dyslipidemia 4. BMI of 30, high BMI 29 5. History of mitral valve prolapse. 6. Questionable seizure disorder followed by the Neurologist Dr. Sesay. 7. Status post cholecystectomy 8. Hypertension 9. History fo migraine headaches 10.Generalized anxiety disorder 11.Carpel tunnel syndrome PLAN: 1. Admit the patient 2. Routine telemetry orders 3. Continue all the home medications including Coreg 4. Telemetry 5. Monitoring serial EKG's, Cardiac enzymes, Isoenzymes 6. Will do echo and stress echo in the morning 7. Will also D-Dimer and BNP CONDITION: Stable TIME SPENT: More than 70 minutes. MTDD
--- NOTE | 2017-03-20 11:09 | PN ---
DATE OF SERVICE: 03/14/17 SUBJECTIVE: 41 year old white female hospitalized with chest pain and multiple other nonspecific complaints. The patient is up and about. Neurological status and cardiovascular status is stable. REVIEW OF SYSTEMS: CONSTITUTIONAL: No night sweats. No fatigue, malaise, lethargy. No fever or chills. HEENT: Eyes: No visual changes. No eye pain. No eye discharge. ENT: No runny nose. No epistaxis. No sinus pain. No sore throat. No odynophagia. No congestion. RESPIRATORY: No cough, no congestion. No hemoptysis. No shortness of breath. CARDIOVASCULAR: No angina symptoms. No CHF symptoms. No atypical chest pain for CAD. No palpitations. No orthopnea. GASTROINTESTINAL: No abdominal pain. No nausea or vomiting. No diarrhea or constipation. No hematemesis. No hematochezia. GENITOURINARY: No urgency. No frequency. No dysuria. No hematuria. No obstructive symptoms. No discharge. No pain. No significant abnormal bleeding. MUSCULOSKELETAL: No musculoskeletal pain; no joint swelling. NEUROLOGICAL: Mild headache. No neck pain. No syncope. No seizures. No dizziness. PSYCHIATRIC: Not anxious. No depression. No suicidal thoughts. No homicidal thoughts. SKIN: No rash. No lesions. No wounds. ENDOCRINE: No unexplained weight loss. No weight gain. HEMATOLOGIC/LYMPHATIC: No anemia. No purpura. No petechiae. No prolonged or excessive bleeding. No palpable lymph nodes. PHYSICAL EXAMINATION: GENERAL: The patient is oriented to time, place and person. HEENT: Head normocephalic, atraumatic. Eyes: Extraocular muscles are intact. Pupils are equal, round and reactive to light and accommodation. Ears: No lesions. Nose appeared normal. Throat: No exudate or erythema. NECK: Supple. No JVD, no carotid bruit. No lymphadenopathy or thyromegaly. LUNGS: Clear to auscultation. Percussion note normal. Chest symmetrical. HEART: S1, S2, no S3. No murmurs. No cyanosis or clubbing. No ascites. Pulses: Dorsalis pedis and posterior tibial pulses +1 to +2 both sides. ABDOMEN: Soft. Nontender. Bowel sounds active. No CVA tenderness. No mass felt. EXTREMITIES: No edema. Full range of motion of all extremities, equal. NEUROLOGIC: No focal deficit. Cranial nerves II through XII are grossly intact. No headache, no double vision or headache. SKIN: Not dry. Intact. Turgor - normal. LYMPHATIC: No palpable lymph nodes/no lymphedema. MUSCULOSKELETAL: Normal joints with no swelling. Muscle tone is normal. LABS: MRI of the brain showed nonspecific findings of leukomalacia could be related to infection nonspecific or autoimmune disease. This patient is being followed by Dr. Sesay. We will send copy of MRI to Dr. Sesay. ASSESSMENT: 1. Chest pain seems to be noncardiac but has some component of coronary insufficiency. The patient has multiple risk factors for coronary artery disease like dyslipidemia, labile hypertension, family history of heart disease. The patient underwent echo and stress echo and there was no evidence of ischemia. LV contractility is normal. 2. Normal cardiovascular status with cardiac markers negative, telemetry negative for ST-T wave change, sinus rhythm with negative stress echo. 3. Headache 4. Fibromyalgia 5. Mitral valve prolapse The patient's echocardiogram did show mitral valve prolapse. CONDITION: Stable TIME SPENT: More than 30 minutes. Plan and coordination of the patient's care discussed in the presence of nurse. JUMA
--- NOTE | 2017-03-21 08:01 | PN ---
DATE OF SERVICE: 03/15/17 SUBJECTIVE: 41 year old white female hospitalized with chest pain. The patient's workup for the chest pain is negative for coronary insufficiency. The patient has mitral valve prolapse. The present problem the patient has is severe migraine headache. Yesterday she got Morphine Sulfate at night that helped her a lot. The patient is reluctant to try any other medication; Toradol was declined by her. Explained to her that she needs to get Toradol and maybe Morphine Sulfate to get over the migraine headache. She also had nausea with dizziness. We will start Antivert. Appetite is good and she is eating OK. REVIEW OF SYSTEMS: CONSTITUTIONAL: No night sweats. No fatigue, malaise, lethargy. No fever or chills. HEENT: Eyes: No visual changes. No eye pain. No eye discharge. ENT: No runny nose. No epistaxis. No sinus pain. No sore throat. No odynophagia. No congestion. RESPIRATORY: No cough, no congestion. No hemoptysis. No shortness of breath. CARDIOVASCULAR: No angina symptoms. No CHF symptoms. No atypical chest pain for CAD. No palpitations. No orthopnea. GASTROINTESTINAL: No abdominal pain. No nausea or vomiting. No diarrhea or constipation. No hematemesis. No hematochezia. GENITOURINARY: No urgency. No frequency. No dysuria. No hematuria. No obstructive symptoms. No discharge. No pain. No significant abnormal bleeding. MUSCULOSKELETAL: No musculoskeletal pain; no joint swelling. NEUROLOGICAL: No headache. No neck pain. No syncope. No seizures. No dizziness. PSYCHIATRIC: Not anxious. No depression. No suicidal thoughts. No homicidal thoughts. SKIN: No rash. No lesions. No wounds. ENDOCRINE: No unexplained weight loss. No weight gain. HEMATOLOGIC/LYMPHATIC: No anemia. No purpura. No petechiae. No prolonged or excessive bleeding. No palpable lymph nodes. PHYSICAL EXAMINATION: GENERAL: The patient is oriented to time, place and person. VITAL SIGNS: Temperature 97.8, pulse 60, respiratory rate 14, blood pressure 100/64 and pulse ox 100%. HEENT: Head normocephalic, atraumatic. Eyes: Extraocular muscles are intact. Pupils are equal, round and reactive to light and accommodation. Ears: No lesions. Nose appeared normal. Throat: No exudate or erythema. NECK: Supple. No JVD, no carotid bruit. No lymphadenopathy or thyromegaly. LUNGS: Clear to auscultation. Percussion note normal. Chest symmetrical. HEART: S1, S2, no S3. No murmurs. No cyanosis or clubbing. No ascites. Pulses: Dorsalis pedis and posterior tibial pulses +1 to +2 both sides. ABDOMEN: Soft. Nontender. Bowel sounds active. No CVA tenderness. No mass felt. EXTREMITIES: No edema. Full range of motion of all extremities, equal. NEUROLOGIC: No focal deficit. Cranial nerves II through XII are grossly intact. No headache, no double vision or headache. SKIN: Not dry. Intact. Turgor - normal. LYMPHATIC: No palpable lymph nodes/no lymphedema. MUSCULOSKELETAL: Normal joints with no swelling. Muscle tone is normal. LABS: Hgb 11.2, hct 33, WBC 6,000 normal differential, creatinine 0.9, BUN 17, potassium 3.9. ASSESSMENT: 1. Chest pain seems to be noncardiac 2. Obesity 3. Mitral valve prolapse 4. Migraine headaches 5. Fibromyalgia 6. History of depression PLAN: 1. Continue Toradol 30mg IV 2. Encouraged the patient to take Toradol IV 3. Antivert to be started 4. Will give her one dose of Morphine Sulfate 5. Explain to the patient that the commercial insurance may not approve her even observation but she wants to get migraine under control which I agree with her. CONDITION: Stable TIME SPENT: More than 30 minutes. Plan and coordination of the patient's care discussed in the presence of nurse. JUMA
--- NOTE | 2017-03-21 10:29 | PN ---
DATE OF SERVICE: 03/16/17 FINAL DIAGNOSIS: 1. Chest pain atypical noncardiac 2. Migraine headaches 3. Fibromyalgia 4. Anxiety syndrome 5. Depression 6. Borderline obesity DISCHARGE INSTRUCTIONS: Continue the same medication that she has been on including the Coreg. Instruction to come back on Friday to see me on followup. Continue followup with Vicente at [facility] for her psychiatric problems. MEDICATIONS AT DISCHARGE: Klonopin 0.5mg PO daily Coreg 6.25mg PO twice a day Klonopin 1mg PO bedtime Prozac 20mg PO bedtime Aspirin 81mg PO daily NEW PRESCRIPTIONS: None. DIET INSTRUCTIONS: As tolerated ACTIVITY: Get plenty of rest at home. Gradually increase activity as tolerated. SMOKING: Never smoker DISEASE SPECIFIC EDUCATION: Followup Risk factors for Coronary insufficiency Migraines HOSPITAL COURSE: Nickie Strait 41 year old white female hospitalized with chest pain which was equivocal. She has several risk factors for coronary insufficiency. The patient' s entire workup including stress echo, cardiac markers, EKG's, Telemetry all negative for any acute marker event. She was up and about by later on developed severe headache requiring for more day of stay which was treated with Morphine Sulfate and Toradol. At the time of discharge she was feeling somewhat better. She has a lot of stress at home. She has no suicidal or homicidal tendency and good support with the . The patient was discharged home in stable condition to be followed as an outpatient. TIME SPENT: More than 60 minutes. JUMA
--- NOTE | 2017-03-21 10:31 | PN ---
03/13/17: Level 5 Observation 03/14/17: Intermediate 03/15/17: Intermediate 03/16/17: D as in discharge MTDD
== END 2017-03-16 12:33 | disposition home or self-care (01) ==
LOC: MEDSURG B 19:03 → INTOOBSV 19:03 → UNDOADMIN 19:03 → MEDSURG A 19:03
PROVIDERS: ADMIT Internal Medicine; ATTEND Internal Medicine
DX: R07.89 Other chest pain (principal); I34.1 Nonrheumatic mitral (valve) prolapse; R06.02 Shortness of breath; G43.909 Migraine, unspecified, not intractable, without status migrainosus; F41.8 Other specified anxiety disorders; M79.7 Fibromyalgia; E66.8 Other obesity; E78.5 Hyperlipidemia, unspecified; I10 Essential (primary) hypertension; Z82.49 Family history of ischemic heart disease and other diseases of the circulatory system; Z79.899 Other long term (current) drug therapy
CPT/HCPCS: 36415; 80053; 81001; 82550; 84439; 84443; 84484; 85025; 85379; 87086; 87186; 93005; 93010; 94640

== ENCOUNTER 2017-12-09 10:57 | Outpatient (CLI) | END 2017-12-09 10:58 | disposition home or self-care (01) | LOC: LAB 10:57 | PROVIDERS: ATTEND Internal Medicine | DX: E78.5 Hyperlipidemia, unspecified (principal); I10 Essential (primary) hypertension; K76.0 Fatty (change of) liver, not elsewhere classified; I34.1 Nonrheumatic mitral (valve) prolapse | CPT/HCPCS: 36415; 80053; 80061; 82607; 83036; 84443; 85025 ==

== ENCOUNTER 2017-12-18 15:03 | Outpatient (CLI) | END 2017-12-18 15:04 | disposition home or self-care (01) | LOC: LAB 15:03 | PROVIDERS: ATTEND Internal Medicine | DX: K76.0 Fatty (change of) liver, not elsewhere classified (principal); R74.0 Nonspecific elevation of levels of transaminase and lactic acid dehydrogenase [LDH] | CPT/HCPCS: 36415; 80053; 80074; 85025 ==

== ENCOUNTER 2017-12-22 06:07 | Outpatient (CLI) ==
--- NOTE | 2017-12-22 11:38 | ECHO2D ---
Date of Exam: 12/22/17 Ordering Physician:DR. NISSA BHAKTA Room #: OP Reason for Echo: SOB, CHEST PAIN, DIZZINESS M-Mode Normal Adult Results LV Dimensions Normal Adult Results AoV Opening excursions >1.6 >1.6 LVEDD-base- 3.5-5.8 4.4 Ao root dimensions 2.0-3.7 2.9 LVESD-base- 3.1-4.6 L. Atrium dimensions 1.9-3.8 3.8 Post. Wall thickness 0.8-1.1 1.1 IV septum (thickness) 0.7-1.2 1.1 Post. Wall excursion 0.72-1.3 NORMAL Septal motion NORMAL Systolic motion R. Ventricular cavity 1.5-2.0 NORMAL LVEF 60% 56% Paradoxical septal wall motion NORMAL 2-D : 2-D M Mode Echocardiogram was performed using apical four chamber and left parasternal long and short axis views. Mitral, tricuspid and aortic valves appear to be normal. Contractility of the left ventricle seems to be normal, so is the cavity size. Left atrial cavity size and aortic root appear to be normal. There is no pericardial effusion. There is no thrombus noted in the left ventricular or left aortic cavity. No mitral valve prolapse noted. M-MODE: MV: MITRAL VALVE PROLAPSE LATE SYSTOLIC AV: NORMAL TV: NORMAL PV: CHAMBER SIZE: NORMAL WALL MOTION: NORMAL PERICARDIUM: NORMAL INTERPRETATION: 1. LATE SYSTOLIC MITRAL VALVE PROLAPSE 2. NORMAL LEFT VENTRICULAR CONTRACTILITY 3. NORMAL LEFT VENTRICLE AND LEFT ATRIAL SIZE MTDD
== END 2017-12-22 06:08 | disposition home or self-care (01) ==
LOC: CAR 06:07
PROVIDERS: ATTEND Internal Medicine
DX: R06.02 Shortness of breath (principal); R07.9 Chest pain, unspecified; R42 Dizziness and giddiness
CPT/HCPCS: 93005; 93010

== ENCOUNTER 2017-12-23 09:27 | Outpatient (CLI) ==
--- NOTE | 2017-12-23 10:41 | US ---
EXAM: Bilateral carotid artery Doppler History: Dizziness. Comparison: Carotid Doppler 03/14/2017 Technique: Multiple sonographic images through the bilateral internal carotid arteries were obtained . Color duplex Doppler was used to interrogate vascular flow. Findings: The right ICA peak systolic velocity is within normal limits measuring 60 cm/sec. The right ICA/cca PSV ratio is normal at 0.90. The right vertebral artery is patent and demonstrates antegrade flow. G ray scale images demonstrate no significant plaque buildup within the right internal carotid artery. The left ICA peak systolic velocity is within normal limits measuring 70 cm/sec. The left ICA/cca PS V ratio is normal at 1.3. The left vertebral artery is patent and demonstrates antegrade flow. Pérez scale images demonstrate no significant plaque buildup within the left internal carotid artery Impression: No significant hemodynamic stenosis of the bilateral internal carotid arteries
== END 2017-12-23 09:28 | disposition home or self-care (01) ==
LOC: RAD 09:27
PROVIDERS: ATTEND Internal Medicine
DX: R42 Dizziness and giddiness (principal); R07.9 Chest pain, unspecified

== ENCOUNTER 2017-12-26 06:07 | Outpatient (CLI) ==
--- NOTE | 2017-12-26 10:22 | ECHOSTRESS ---
Date of Exam: 12/26/17 Ordering Physician: DR. NISSA BHAKTA Reason for Echo: SOB, CHEST PAIN, DIZZINESS, STRESS TEST--NO ISCHEMIA M-Mode Normal Adult Results LV Dimensions Normal Adult Results AoV Opening excursions >1.6 LVEDD-base- 3.5-5.8 Ao root dimensions 2.0-3.7 LVESD-base- 3.1-4.6 L. Atrium dimensions 1.9-3.8 Post. Wall thickness 0.8-1.1 IV septum (thickness) 0.7-1.2 Post. Wall excursion 0.72-1.3 Septal motion Systolic motion R. Ventricular cavity 1.5-2.0 LVEF 60% Paradoxical septal wall motion 2-D: NORMAL LEFT VENTRICULAR CONTRACTILITY--RESTING AND POST EXERCISE M-MODE: MV: AV: TV: PV: CHAMBER SIZE: WALL MOTION: NORMAL LEFT VENTRICULAR CONTRACTILITY--RESTING AND POST EXERCISE PERICARDIUM: INTERPRETATION: 1. NORMAL LEFT VENTRICULAR CONTRACTILITY--RESTING AND POST EXERCISE MTDD
--- NOTE | 2017-12-26 10:34 | STRESSECHO ---
Date of Test: 12/26/17 Ordering Physician: DR. NISSA BHAKTA Occupation: UNEMPLOYED Reason for Exam: SOB, CHEST PAIN, DIZZINESS Smoking History: NONE Height: 60" Weight: 173 LBS Current Medications: COREG, KLONOPIN, LEXAPRO Resting EKG: SINUS RHYTHM/ NO ACUTE CHANGES Target Heart Rate: 152/179 S-T SEGMENT STAGE MPH/GRADE HEART RATE BPM BLOOD PRESSURE MMHG RHYTHM +/- ELEVATION DEPRESSION SYMPTOMS AT REST 66 BPM 118/80 MMHG SR X NONE 1 1.7/10% 110 BPM 124/172 MMHG SR X NONE 2 2.5/12% 130 BPM 130/66 MMHG SR X NONE 3 3.4/14% 4 4.2/16% 5 5.0/18% Immediately After 145 BPM SR X SOB Minutes Post Exercise 3:00 104 BPM 138/78 MMHG SR X NONE Minutes Post Exercise 8:00 88 BPM 130/72 MMHG SR X NONE DURATION OF EXERCISE: 6:50 MAXIMUM HEART RATE REACHED: 145 BPM REASON FOR TERMINATION: SHORT OF BREATH 96% OXYGEN SATURATION WITH EXERCISE ON ROOM AIR METS 10.0 INTERPRETATION: 1. NO EVIDENCE OF ISCHEMIA BY ST-T WAVE CHANGES 2. NO CHEST PAIN OR CHEST DISCOMFORT 3. BLOOD PRESSURE RESPONSE: NORMAL AT REST AND WITH EXERCISE 4. NO ARRHYTHMIAS NORMAL LEFT VENTRICULAR CONTRACTILITY--RESTING AND POST EXERCISE MTDD
== END 2017-12-26 06:08 | disposition home or self-care (01) ==
LOC: CAR 06:07
PROVIDERS: ATTEND Internal Medicine
DX: R06.02 Shortness of breath (principal); R07.9 Chest pain, unspecified; R42 Dizziness and giddiness

== ENCOUNTER 2017-12-31 12:34 | Outpatient (CLI) | END 2017-12-31 12:35 | disposition home or self-care (01) | LOC: LAB 12:34 | PROVIDERS: ATTEND Internal Medicine | DX: R53.83 Other fatigue (principal); R51 Headache | CPT/HCPCS: 36415; 80053; 85025; 86308; 86644; 86663 ==

== ENCOUNTER 2018-04-06 15:50 | Outpatient (CLI) ==
--- NOTE | 2018-04-06 16:33 | DI ---
EXAM: Two views of the left hip. History: Left hip pain. Findings: No acute fracture or dislocation. Increased acetabular coverage of the left femoral head. Mild narrowing of the left hip joint. Intrauterine device seen in the pelvis. Impression: 1. No acute osseous abnormality. 2. 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 3. Increased acetabular coverage of the left femoral head can predispose to femoral acetabular impin gement syndrome.
== END 2018-04-06 15:51 | disposition home or self-care (01) ==
LOC: LAB 15:50
PROVIDERS: ATTEND Internal Medicine
DX: E78.5 Hyperlipidemia, unspecified (principal); I10 Essential (primary) hypertension; E66.9 Obesity, unspecified; M25.552 Pain in left hip
CPT/HCPCS: 36415; 80053; 80061; 83036; 84443; 85025

== ENCOUNTER 2018-05-15 09:18 | Outpatient (CLI) | END 2018-05-15 09:19 | disposition home or self-care (01) | LOC: LAB 09:18 | PROVIDERS: ATTEND Internal Medicine | DX: E78.5 Hyperlipidemia, unspecified (principal); R94.5 Abnormal results of liver function studies | CPT/HCPCS: 36415; 80053; 83036; 84443; 85025 ==

== ENCOUNTER 2018-06-26 09:51 | Outpatient (CLI) | END 2018-06-26 09:52 | disposition home or self-care (01) | LOC: LAB 09:51 | PROVIDERS: ATTEND Internal Medicine | DX: J20.9 Acute bronchitis, unspecified (principal); M79.7 Fibromyalgia | CPT/HCPCS: 36415; 80053; 85025; 85651; 86038 ==

== ENCOUNTER 2018-11-02 09:53 | Outpatient (CLI) | END 2018-11-02 09:54 | disposition home or self-care (01) | LOC: LAB 09:53 | PROVIDERS: ATTEND Internal Medicine | DX: I10 Essential (primary) hypertension (principal); E78.5 Hyperlipidemia, unspecified | CPT/HCPCS: 36415; 80053; 84443; 85025 ==

== ENCOUNTER 2021-06-11 20:26 | Inpatient (IN) ==
--- NOTE | 2021-06-11 21:07 | ED.PDOC ---
General ED Provider: Dr. NICK WHITTAKER Chief Complaint: Earache Stated Complaint: Patient has had pneumonia and Flu early this year. States last week she started coughing and have ear ache with bloody drainage. She went to Dr Bhakta who placed her on Azithromycin and Steroids po which she has competed. She continues to use her Ciprodex ear drops. Has not seen ENT eye. Time Seen by Provider: 06/11/21 21:02 Mode of Arrival: Walk-In Information Source: Patient Primary Care Provider: NISSA BHAKTA Nursing and Triage Documentation Reviewed and Agree: Yes Does patient meet sepsis criteria?: Yes If yes, has appropriate treatment been initiated?: Yes System Inflammatory Response Syndrome: Pulse >90 BPM and Resp >20/Minute Sepsis Protocol: For patient's 13 years and over: Temp is 96.8 and below OR 101 and greater Pulse >90 BPM Resp >20/minute Acutely Altered Mental Status Are patient's symptoms suggestive of a new infection, such as: -Pneumonia -Skin, Soft Tissue -Endocarditis -UTI -Bone, Joint Infection -Implantable Device -Acute Abdominal Infection -Wound Infection -Meningitis -Blood Stream Catheter Infection -Unknown EENT Complaint Exam Ear Complaint/Exam Onset/Duration: 3 days Symptoms Are: Still present Timing: Constant Initial Severity: Moderate Current Severity: Moderate Character: Reports Dull pain and Aching pain Aggravating: Reports Tugging on ear Alleviating: Reports None Associated Signs and Symptoms: Reports Discharge and Bleeding External Canal: Erythema, Tenderness and Swelling Material in Canal: Present Discharge and Blood Differential Diagnoses: Otitis Externa Review of Systems Review Of Systems Constitutional: Reports No symptoms Eyes: Reports No symptoms Ears, Nose, Mouth, Throat: Reports Ear discharge (mild bloody.) Respiratory: Reports Cough (non productive ); Denies Short of air Cardiac: Denies Chest pain GI: Reports No symptoms : Reports No symptoms Musculoskeletal: Reports No symptoms Skin: Reports No symptoms Neurological: Reports Anxiety Endocrine: Reports No symptoms All Other Systems: Reviewed and Negative [facility] Medical History (Updated 06/11/21 @ 21:30 by NICK WHITTAKER MD) Anxiety Chest pain HTN (hypertension) Hyperlipidemia Patent foramen ovale Seizure Social History (Updated 06/11/21 @ 21:26 by NICK WHITTAKER MD) Smoking and tobacco status: Never smoker Alcohol intake: never History of recent travel: No Surgical History (Updated 06/11/21 @ 21:24 by NICK WHITTAKER MD) H/O: hysterectomy History of cholecystectomy Physical Exam Physical Exam Appearance: Reports Ill-appearing and Obese Ill-appearing: Mild Pain Distress: Moderate Eyes: Reports MURIEL, EOMI and Conjunctiva clear ENT: Reports Other (ear Drianage ) Neck: Not Examined Respiratory: Reports Airway patent and Breath sounds clear Cardiovascular: Reports RRR and Pulses normal GI/: Reports Soft and Nontender Musculoskeletal: Reports Normal strength and ROM intact Skin: Reports Warm and Dry Neurological: Reports Motor intact, Alert and Oriented Psychiatric: Reports Anxious Critical Care Note Critical Care Note Total Critical Care Time (mins): 30 Course Course Hematology/Chemistry: 06/11/21 21:27 06/11/21 21:27 Vital Signs: Temp Pulse Resp BP Pulse Ox 06/11/21 20:26 99.2 F 107 H 28 H 156/102 H 99 Discharge Plan Discharge Discharge Problem: Otitis externa of left ear, Otitis externa of right ear, Bronchitis Prescriptions: No Action clonazepam [Klonopin] 1 MG tablet 0.5 mg PO DAILY 0RF carvedilol 6.25 MG tablet 6.25 mg PO BIDWM Qty: 60 1RF Rx Instructions: Take one tablet by mouth with food twice a day. zonisamide 100 mg capsule 100 mg PO BID 0RF Label Comments: TAKE 1 CAPSULE BY MOUTH TWICE DAILY amitriptyline 25 mg Tablet 75 mg PO BEDTIME 0RF codeine-guaifenesin 10-100 mg/5 mL liquid 10 ml PO QID PRN (Reason: Cough) 0RF Label Comments: TAKE 10 ML BY MOUTH 4 TIMES DAILY NEEDED FOR 7 DAYS ciprofloxacin-dexamethasone [Ciprodex] 0.3-0.1 % Drops,Suspension 2 drp BOTHEARS BID 0RF levocetirizine 5 mg Tablet 5 mg PO DAILY 0RF clonazepam [Klonopin] 1 MG tablet 1 mg PO BID PRN (Reason: Anxiety) 0RF aspirin [Aspir-Low] 81 MG tablet,delayed release (DR/EC) 81 mg PO DAILY 0RF ED Provider: NICK WHITTAKER Physician Progress Note: []
[2021-06-11] MEDS ORDERED: DUONEB NEB STA ×2 (21:15→23:15)
[2021-06-11] MEDS ORDERED: TORADOL IVP ONE (21:27)
[2021-06-11] MEDS ORDERED: DECADRON IVP STA (21:27)
[2021-06-11] MEDS ORDERED: SODIUM CHLORIDE 1,000 ML IV STA (21:27)
[2021-06-11 21:36] LABS: BASOPHILS # (AUTO) 0.1 K/uL (0-0.2); BASOPHILS % (AUTO) 0.8 % (0.0-3.0); EOSINOPHILS # (AUTO) 0.1 K/ul (0.0-0.7); EOSINOPHILS % (AUTO) 0.9 % (0.0-7.0); HEMATOCRIT 38.2 % (37.0-47.0); HEMOGLOBIN 12.6 g/dl (12.0-16.0); IMMATURE GRANULOCYTE # (AUTO) 0.1 (0.0-1.0); IMMATURE GRANULOCYTE % (AUTO) 0.5 % (0.0-5.0); LYMPHOCYTES # (AUTO) 4.1 K/uL (0.60-3.4); LYMPHOCYTES % (AUTO) 40.3 (10.0-50.0); MONOCYTES # (AUTO) 0.9 K/uL (0.4-2.0); MONOCYTES % (AUTO) 8.8 (0-10); NEUTROPHILS % (AUTO) 48.7 % (42.2-75.2); PLATELET COUNT 211 10^3/uL (140-440); RED BLOOD COUNT 4.34 10^6/ul (4.20-5.40); WHITE BLOOD COUNT 10.28 K/ul (4.6-10.2)
[2021-06-11 21:42] LABS: BORDETELLA PARAPERTUSSIS (PCR) NOT DETECTED (NOT DETECT); BORDETELLA PERTUSSIS (PCR) NOT DETECTED (NOT DETECT); CHLAMYDIA PNEUMONIAE (PCR) NOT DETECTED (NOT DETECT); CORONAVIRUS 229E (PCR) NOT DETECTED (NOT DETECT); CORONAVIRUS HKU1 (PCR) NOT DETECTED (NOT DETECT); CORONAVIRUS NL63 (PCR) NOT DETECTED (NOT DETECT); CORONAVIRUS OC43 (PCR) NOT DETECTED (NOT DETECT); HUMAN METAPNEUMOVIRUS (PCR) NOT DETECTED (NOT DETECT); HUMAN RHINOVIRUS/ENTEROV (PCR) NOT DETECTED (NOT DETECT); INFLUENZA B (PCR) NOT DETECTED (NOT DETECT); MYCOPLASMA PNEUMONIAE (PCR) NOT DETECTED (NOT DETECT); PARAINFLUENZA VIRUS 1 (PCR) NOT DETECTED (NOT DETECT); PARAINFLUENZA VIRUS 2 (PCR) NOT DETECTED (NOT DETECT); PARAINFLUENZA VIRUS 4 (PCR) NOT DETECTED (NOT DETECT); RESPIRATORY SYNCYTIAL V (PCR) NOT DETECTED (NOT DETECT); SARS_COV_2 (PCR) NOT DETECTED (NOT DETECT)
--- NOTE | 2021-06-11 21:44 | DI ---
EXAM: Two view chest. HISTORY: Bilateral ear infections. Dry cough. COMPARISON: 03/13/2017 TECHNIQUE: Frontal and lateral views of the chest. FINDINGS: Lungs: The lung volumes are normal.The lungs are clear without consolidation or effusion. There are n o suspicious nodules. There is no pneumothorax. Cardiovascular: The heart size and pulmonary vasculature is normal.. The aorta is unremarkable. Erika/Mediastinum: Normal. Osseous structures. Normal for age. IMPRESSION: No acute pulmonary disease.
[2021-06-11 21:50] LABS: ALANINE AMINOTRANSFERASE 35.6 U/L (0-35); ALBUMIN 4.35 g/dL (3.5-5.0); ALKALINE PHOSPHATASE 85.2 U/L (38-126); ASPARTATE AMINO TRANSFERASE 35.4 U/L (14-36); BLOOD UREA NITROGEN 8.7 mg/dL (7-17); CALCIUM 9.17 mg/dL (8.4-10.2); CHLORIDE 102.4 mmol/L (98-107); CREATININE 1.18 mg/dL (0.60-1.30); GLUCOSE 96.6 mg/dL (74-106); SODIUM 138.7 mmol/L (134.5-145); TOTAL PROTEIN 7.83 g/dL (6.3-8.2)
[2021-06-11 22:02] LABS: POTASSIUM 2.73 mmol/L (3.5-5.1); TROPONIN I < 0.012 ng/ml (0.0000-0.120)
[2021-06-11] MEDS ORDERED: SODIUM CHLORIDE 0.9%-KCL 20 MEQ 1,000 ML IV STA (22:18)
[2021-06-11] MEDS ORDERED: K-DUR PO ONE (22:18)
[2021-06-11 22:31] LABS: ADENOVIRUS (PCR) NOT DETECTED (NOT DETECT); PARAINFLUENZA VIRUS 3 (PCR) DETECTED (NOT DETECT)
[2021-06-11 23:06] LABS: VBG PH 7.41 (7.30-7.40)
[2021-06-11 23:07] LABS: VBG HCO3 24.7 (22-26); VBG OXYGEN SATURATION 69.7 (60-80)
[2021-06-11] MEDS ORDERED: ROCEPHIN 1 GM/50 ML D5W 1 GM/50 ML BAG IV STA (23:14)
[2021-06-11] MEDS ORDERED: TYLENOL PO PRN (23:15)
[2021-06-11] MEDS ORDERED: ZOFRAN 4 MG/2 ML IVP PRN (23:15)
[2021-06-11] MEDS ORDERED: ROBITUSSIN AC SYRUP PO PRN (23:19)
[2021-06-11] MEDS ORDERED: KLONOPIN PO PRN (23:19)
[2021-06-11] MEDS ORDERED: MOTRIN PO PRN (23:31)
[2021-06-11] MEDS ORDERED: MORPHINE 2 MG/ML VIAL IVP PRN (23:31)
--- NOTE | 2021-06-11 23:45 | CT ---
Exam: CT angiography of the chest History: Elevated D-dimer Technique: [address] of the chest utilizing CT angiography protocol. Multiplanar and max imum intensity projection reformations were performed. FINDINGS: Technically adequate for evaluation of pulmonary arteries and aorta. There are no pulmona ry artery filling defects. There is a 0.7 x 0.7 cm indeterminate nodule of the right lower lobe. No infiltrates or consolidation. Mediastinal lymph nodes are enlarged measuring up to 1.2 cm right par atracheal. Subcarinal lymph node measuring AP diameter 1.7 cm. No acute findings of the upper abdom en. Impression: 1. No evidence of pulmonary artery thrombus 2. Indeterminate 0.7 cm right lower lobe nodule. See comment for follow-up recommendation. 3. Mediastinal lymph node enlargement is nonspecific. Follow-up recommended. 4. No acute findings of the chest otherwise Comment: Fleischner Society Recommendations 2017 revision Single solid nodule <6 mm (<100 mm3) - Low-risk patients: no routine follow-up required - High-risk patients: optional CT at 12 months (particularly with suspicious nodule morphology and/or upper lobe location; see "risk assessment" below) Solitary solid nodule 6-8 mm (100-250 mm3) - Low-risk patients: CT at 6-12 months, then consider CT at 18-24 months - High-risk patients: CT at 6-12 months, then CT at 18-24 months Solitary solid nodule >8 mm (>250 mm3) - Low-risk and high-risk patients: consider CT at 3 months, PET/CT, or tissue sampling All CT scans are performed using dose optimization techniques as appropriate to the performed exam an d include at least one of the following: Automated exposure control, adjustment of the mA and/or kV according t o size, and the use of iterative reconstruction technique.
[2021-06-12 00:05] VITALS: BMI 35.6
[2021-06-12 05:25] LABS: BASOPHILS # (AUTO) 0.1 K/uL (0-0.2); BASOPHILS % (AUTO) 0.6 % (0.0-3.0); HEMATOCRIT 34.9 % (37.0-47.0); HEMOGLOBIN 11.4 g/dl (12.0-16.0); IMMATURE GRANULOCYTE % (AUTO) 0.3 % (0.0-5.0); LYMPHOCYTES # (AUTO) 2.2 K/uL (0.60-3.4); LYMPHOCYTES % (AUTO) 25.2 (10.0-50.0); MEAN CORPUSCULAR HEMOGLOBIN 28.7 pg (27.0-31.0); MEAN CORPUSCULAR HGB CONC 32.7 (31.8-35.4); MEAN CORPUSCULAR VOLUME 87.9 fl (81.0-99.0); MONOCYTES # (AUTO) 0.3 K/uL (0.4-2.0); NEUTROPHILS # (AUTO) 6.2 K/ul (2.0-6.9); NEUTROPHILS % (AUTO) 70.9 % (42.2-75.2); PLATELET COUNT 211 10^3/uL (140-440); RDW COEFFICIENT OF VARIATION 14.7 % (11.6-14.8); RED BLOOD COUNT 3.97 10^6/ul (4.20-5.40); WHITE BLOOD COUNT 8.72 K/ul (4.6-10.2)
[2021-06-12 05:38] LABS: ALANINE AMINOTRANSFERASE 35.6 U/L (0-35); ALBUMIN 3.85 g/dL (3.5-5.0); ALKALINE PHOSPHATASE 86.1 U/L (38-126); ASPARTATE AMINO TRANSFERASE 36.2 U/L (14-36); BILIRUBIN,TOTAL 0.35 mg/dL (0.2-1.3); BLOOD UREA NITROGEN 10.8 mg/dL (7-17); CALCIUM 8.1 mg/dL (8.4-10.2); CARBON DIOXIDE 21.5 mmol/L (22-30.0); CHLORIDE 107.9 mmol/L (98-107); CREATININE 0.99 mg/dL (0.60-1.30); GLUCOSE 157.4 mg/dL (74-106); POTASSIUM 3.71 mmol/L (3.5-5.1); SODIUM 138.3 mmol/L (134.5-145); TOTAL PROTEIN 7.01 g/dL (6.3-8.2)
[2021-06-12] MEDS: NORCO 10-325 PO PRN ×2 (08:13→16:41)
[2021-06-12] MEDS: COREG PO SCH ×2 (08:13→16:52)
[2021-06-12] MEDS: CLARITIN PO SCH (08:13)
[2021-06-12] MEDS ORDERED: LOVENOX SUBCUT SCH (09:00)
[2021-06-12] MEDS ORDERED: DECADRON IVP SCH (09:00)
[2021-06-12] MEDS ORDERED: KLONOPIN PO SCH (09:00)
[2021-06-12] MEDS ORDERED: CIPRODEX OTIC SUSPENSION EACH EAR SCH (09:00)
[2021-06-12] MEDS ORDERED: ASPIRIN EC PO SCH (09:00)
[2021-06-12] MEDS ORDERED: K-DUR PO ONE (09:00)
[2021-06-12] MEDS: ROCEPHIN 1 GM/50 ML D5W 1 GM/50 ML BAG IV SCH (10:00)
--- NOTE | 2021-06-12 10:19 | PCM.PROG ---
Attending Provider: ATTENDING PROVIDER: Dr. NISSA BHAKTA This patient is seen with Starr Carreon, Nurse Practitioner. DATE OF SERVICE: 06/12/21 SUBJECTIVE: This 45 year old /WHITE F was hospitalized 06/11/21. Had low grade fever. Unable to take oral potassium. Blood drainage from right ear. REVIEW OF SYSTEMS: CONSTITUTIONAL: No night sweats. No fatigue, malaise, lethargy. Fever. HEENT: Eyes: No visual changes. No eye pain. No eye discharge. ENT: Bilateral ear pain. No runny nose. No epistaxis. No sinus pain. No odynophagia. No congestion. RESPIRATORY: Cough, no congestion. No hemoptysis. No shortness of breath. CARDIOVASCULAR: No angina symptoms. No CHF symptoms. No atypical chest pain for CAD. No palpitations. No orthopnea.. GASTROINTESTINAL: No abdominal pain. No nausea or vomiting. No diarrhea or constipation. No hematemesis. No hematochezia. GENITOURINARY: No urgency. No frequency. No dysuria. No hematuria. No obstructive symptoms. No discharge. No pain. No significant abnormal bleeding. MUSCULOSKELETAL: No musculoskeletal pain; no joint swelling. NEUROLOGICAL: Awake, alert, oriented to time, place and person. No headache. No neck pain. No syncope. No seizures. No dizziness. PSYCHIATRIC: Not anxious. No depression. No suicidal thoughts. No homicidal thoughts. SKIN: No rash. No lesions. No wounds. ENDOCRINE: No unexplained weight loss. No weight gain. HEMATOLOGIC/LYMPHATIC: No anemia. No purpura. No petechiae. No prolonged or excessive bleeding. No palpable lymph nodes. PHYSICAL EXAMINATION: GENERAL: The patient is awake, alert and oriented, sitting in bed in no distress. VITAL SIGNS: Temperature 97.7 F, Pulse 87, Respiratory Rate 16, BP 116/78, Pulse Ox 97% HEENT: Head normocephalic, atraumatic. Eyes: Extraocular muscles are intact. Pupils are equal, round and reactive to light and accommodation. Ears: Right TM with bloody effusion, Left TM with perforation with purulent drainage. Nose appeared normal. Throat: No exudate or erythema. NECK: Supple. No JVD, no carotid bruit. No lymphadenopathy or thyromegaly. LUNGS: Clear to auscultation. Percussion note normal. Chest symmetrical. HEART: S1, S2, no S3. No murmurs. No cyanosis or clubbing. No ascites. Pulses: Dorsalis pedis and posterior tibial pulses +1 to +2 both sides. ABDOMEN: Soft. Non-tender. Bowel sounds active. No CVA tenderness. No mass felt. EXTREMITIES: No edema. Full range of motion of all extremities, equal. NEUROLOGIC: No focal deficit. Cranial nerves II through XII are grossly intact. No headache. No double vision. SKIN: Not dry. Intact. Turgor-normal. LYMPHATIC: No palpable lymph nodes/no lymphedema. MUSCULOSKELETAL: Normal joints with no swelling. Muscle tone is normal. LAB REVIEW: 06/12/21 05:04 06/12/21 05:04 06/12/21 05:04: Sodium 138.3, Potassium 3.71, Chloride 107.9 H, Carbon Dioxide 21.5 L, Anion Gap 12.61, BUN 10.8, Creatinine 0.99, Estimated GFR (MDRD) 61.00, BUN/Creatinine Ratio 10.90, Glucose 157.4 H D, Calcium 8.10 L, Total Bilirubin 0.35, AST 36.2 H, ALT 35.6 H, Alkaline Phosphatase 86.1, Total Protein 7.01, Albumin 3.85, Globulin 3.16, Albumin/Globulin Ratio 1.21 06/12/21 05:04: WBC 8.72, RBC 3.97 L, Hgb 11.4 L, Hct 34.9 L, MCV 87.9, MCH 28.7, MCHC 32.7, RDW Coeff of Jennyfer 14.7, Plt Count 211, Immature Gran % (Auto) 0.3, Neut % (Auto) 70.9, Lymph % (Auto) 25.2, [place] % (Auto) 3.0, Eos % (Auto) 0.0, Baso % (Auto) 0.6, Neut # (Auto) 6.2, Lymph # (Auto) 2.2, [place] # (Auto) 0.3 L, Eos # (Auto) 0.0, Baso # (Auto) 0.1, Immature Gran # (Auto) 0.0 06/11/21 22:10: VBG pH 7.41 H, VBG pCO2 39 L, VBG pO2 36, VBG HCO3 24.7, VBG O2 Saturation 69.7 06/11/21 21:35: Adenovirus (PCR) Not detected, B. pertussis DNA (PCR) Not detected, B.parapertussis DNA PCR Not detected, C. pneumoniae DNA (PCR) Not detected, Coronavirus OC43 (PCR) Not detected, Coronavirus HKU1 (PCR) Not detected, Coronavirus 229E (PCR) Not detected, Coronavirus NL63 (PCR) Not detected, Human Metapneumovir PCR Not detected, Influenza Type A (PCR) Not detected, Influenza B (RT-PCR) Not detected, M. pneumoniae (PCR) Not detected, Parainfluenza 1 (PCR) Not detected, Parainfluenza 2 (PCR) Not detected, Parainfluenza 3 (PCR) Detected H, Parainfluenza 4 (PCR) Not detected, RSV (PCR) Not detected, Entero/Rhino (PCR) Not detected, SARS-CoV-2 (PCR) Not detected 06/11/21 21:27: Magnesium 1.67 06/11/21 21:27: Procalcitonin 0.06 06/11/21 21:27: D-Dimer 762.17 H 06/11/21 21:27: Sodium 138.7, Potassium 2.73 L*, Chloride 102.4, Carbon Dioxide 28.0, Anion Gap 11.03, BUN 8.7, Creatinine 1.18, Estimated GFR (MDRD) 50.00, BUN/Creatinine Ratio 7.37, Glucose 96.6, Calcium 9.17, Total Bilirubin 0.40, AST 35.4, ALT 35.6 H, Alkaline Phosphatase 85.2, Total Creatine Kinase 38.0, Troponin I < 0.012, Total Protein 7.83, Albumin 4.35, Globulin 3.48, Albumin/Globulin Ratio 1.25 06/11/21 21:27: WBC 10.28 H, RBC 4.34, Hgb 12.6, Hct 38.2, MCV 88.0, MCH 29.0, MCHC 33.0, RDW Coeff of Jennyfer 15.0 H, Plt Count 211, Immature Gran % (Auto) 0.5, Neut % (Auto) 48.7, Lymph % (Auto) 40.3, [place] % (Auto) 8.8, Eos % (Auto) 0.9, Baso % (Auto) 0.8, Neut # (Auto) 5.0, Lymph # (Auto) 4.1 H, [place] # (Auto) 0.9, Eos # (Auto) 0.1, Baso # (Auto) 0.1, Immature Gran # (Auto) 0.1 ASSESSMENT: Please see below. 1. Hypokalemia improved 2. Bilateral acute Otitis media with perforation of left TM 3. Positive parainfluenza virus. PLAN: 1. Discontinue oral Potassium 2. Decrease IV fluids to 75cc 3. Discontinue Lovenox 4. Increase Ciprodex drops to 4 drops BID Plan and coordination of the patient's care discussed in the presence of Bilingual Sales Consultant and nurse. SCRIBED BY: JOSÉ MIGUEL TOTH, Bobbin Inspector scribed while in presence of service performed by Dr. Bhakta/Starr Carreon APRN on 06/12/21 ([id number])
[2021-06-12 17:12] LABS: TROPONIN I < 0.012 ng/ml (0.0000-0.120)
[2021-06-12] MEDS: ELAVIL PO SCH (20:09)
[2021-06-12] MEDS: CIPRODEX OTIC SUSPENSION EACH EAR SCH (20:10)
[2021-06-13] MEDS: SODIUM CHLORIDE 0.9%-KCL 20 MEQ 1,000 ML IV SCH ×3 (00:28→15:22)
[2021-06-13 04:58] LABS: BASOPHILS % (AUTO) 0.4 % (0.0-3.0); EOSINOPHILS % (AUTO) 0.4 % (0.0-7.0); HEMATOCRIT 35.4 % (37.0-47.0); HEMOGLOBIN 11.6 g/dl (12.0-16.0); IMMATURE GRANULOCYTE % (AUTO) 0.4 % (0.0-5.0); LYMPHOCYTES # (AUTO) 2.8 K/uL (0.60-3.4); LYMPHOCYTES % (AUTO) 37.9 (10.0-50.0); MEAN CORPUSCULAR HEMOGLOBIN 29.2 pg (27.0-31.0); MEAN CORPUSCULAR HGB CONC 32.8 (31.8-35.4); MEAN CORPUSCULAR VOLUME 89.2 fl (81.0-99.0); MONOCYTES # (AUTO) 0.6 K/uL (0.4-2.0); MONOCYTES % (AUTO) 8.4 (0-10); NEUTROPHILS # (AUTO) 3.9 K/ul (2.0-6.9); NEUTROPHILS % (AUTO) 52.5 % (42.2-75.2); PLATELET COUNT 205 10^3/uL (140-440); RDW COEFFICIENT OF VARIATION 15.2 % (11.6-14.8); RED BLOOD COUNT 3.97 10^6/ul (4.20-5.40); WHITE BLOOD COUNT 7.34 K/ul (4.6-10.2)
[2021-06-13 05:10] LABS: ALANINE AMINOTRANSFERASE 33.1 U/L (0-35); ALBUMIN 3.47 g/dL (3.5-5.0); ALKALINE PHOSPHATASE 75.7 U/L (38-126); ASPARTATE AMINO TRANSFERASE 28.3 U/L (14-36); BILIRUBIN,TOTAL 0.32 mg/dL (0.2-1.3); CALCIUM 8.01 mg/dL (8.4-10.2); CARBON DIOXIDE 20.2 mmol/L (22-30.0); CHLORIDE 112.2 mmol/L (98-107); CREATININE 0.88 mg/dL (0.60-1.30); GLUCOSE 132.8 mg/dL (74-106); POTASSIUM 3.71 mmol/L (3.5-5.1); SODIUM 138.4 mmol/L (134.5-145); TOTAL PROTEIN 6.56 g/dL (6.3-8.2)
[2021-06-13] MEDS: ROCEPHIN 1 GM/50 ML D5W 1 GM/50 ML BAG IV SCH (08:53)
[2021-06-13] MEDS: COREG PO SCH ×2 (08:54→17:12)
[2021-06-13] MEDS: CIPRODEX OTIC SUSPENSION EACH EAR SCH ×2 (08:54→20:14)
[2021-06-13] MEDS: CLARITIN PO SCH (08:54)
[2021-06-13] MEDS: ASPIRIN EC PO SCH (08:54)
[2021-06-13] MEDS ORDERED: DECADRON IVP SCH ×2 (09:00)
[2021-06-13] MEDS ORDERED: TORADOL IVP ONE (11:38)
[2021-06-13] MEDS ORDERED: DECADRON IM ONE (11:38)
[2021-06-13] MEDS: ELAVIL PO SCH (20:15)
[2021-06-14] MEDS: SODIUM CHLORIDE 0.9%-KCL 20 MEQ 1,000 ML IV SCH ×2 (04:54→10:03)
[2021-06-14 05:16] LABS: BASOPHILS # (AUTO) 0.1 K/uL (0-0.2); BASOPHILS % (AUTO) 0.9 % (0.0-3.0); EOSINOPHILS % (AUTO) 0.6 % (0.0-7.0); HEMATOCRIT 34.8 % (37.0-47.0); HEMOGLOBIN 11.4 g/dl (12.0-16.0); IMMATURE GRANULOCYTE % (AUTO) 0.4 % (0.0-5.0); MEAN CORPUSCULAR HEMOGLOBIN 29.5 pg (27.0-31.0); MEAN CORPUSCULAR HGB CONC 32.8 (31.8-35.4); MEAN CORPUSCULAR VOLUME 90.2 fl (81.0-99.0); MONOCYTES # (AUTO) 0.5 K/uL (0.4-2.0); MONOCYTES % (AUTO) 7.4 (0-10); NEUTROPHILS # (AUTO) 3.2 K/ul (2.0-6.9); NEUTROPHILS % (AUTO) 46.7 % (42.2-75.2); PLATELET COUNT 199 10^3/uL (140-440); RDW COEFFICIENT OF VARIATION 15.8 % (11.6-14.8); RED BLOOD COUNT 3.86 10^6/ul (4.20-5.40); WHITE BLOOD COUNT 6.88 K/ul (4.6-10.2)
[2021-06-14 05:32] LABS: ALANINE AMINOTRANSFERASE 41.6 U/L (0-35); ALBUMIN 3.63 g/dL (3.5-5.0); ALKALINE PHOSPHATASE 75.6 U/L (38-126); ASPARTATE AMINO TRANSFERASE 39.4 U/L (14-36); BILIRUBIN,TOTAL 0.3 mg/dL (0.2-1.3); BLOOD UREA NITROGEN 15.2 mg/dL (7-17); CALCIUM 7.82 mg/dL (8.4-10.2); CARBON DIOXIDE 20.2 mmol/L (22-30.0); CHLORIDE 111.6 mmol/L (98-107); CREATININE 0.96 mg/dL (0.60-1.30); GLUCOSE 111.7 mg/dL (74-106); POTASSIUM 3.99 mmol/L (3.5-5.1); SODIUM 138.2 mmol/L (134.5-145); TOTAL PROTEIN 6.74 g/dL (6.3-8.2)
[2021-06-14 05:44] VITALS: BP 150/99; TEMP 97.6
[2021-06-14] MEDS: ASPIRIN EC PO SCH (09:05)
[2021-06-14] MEDS: COREG PO SCH (09:06)
[2021-06-14] MEDS: ROCEPHIN 1 GM/50 ML D5W 1 GM/50 ML BAG IV SCH (09:06)
[2021-06-14] MEDS: CLARITIN PO SCH (09:06)
[2021-06-14] MEDS: CIPRODEX OTIC SUSPENSION EACH EAR SCH (09:07)
--- NOTE | 2021-06-14 09:42 | PCM.PROG ---
Attending Provider: ATTENDING PROVIDER: Dr. NISSA LAYNE This patient is seen with Starr Carreon, Nurse Practitioner. DATE OF SERVICE: 06/14/21 SUBJECTIVE: This 45 year old /WHITE F was hospitalized 06/11/21. No fever and has been eating well. Labs are stable. Vitals have been good. The patient is going to be discharged home. REVIEW OF SYSTEMS: CONSTITUTIONAL: No night sweats. No fatigue, malaise, lethargy. No fever or chills. HEENT: Eyes: No visual changes. No eye pain. No eye discharge. ENT: Ear pain. No runny nose. No epistaxis. No sinus pain. No odynophagia. No congestion. RESPIRATORY: No cough, no congestion. No hemoptysis. No shortness of breath. CARDIOVASCULAR: No angina symptoms. No CHF symptoms. No atypical chest pain for CAD. No palpitations. No orthopnea.. GASTROINTESTINAL: No abdominal pain. No nausea or vomiting. No diarrhea or constipation. No hematemesis. No hematochezia. GENITOURINARY: No urgency. No frequency. No dysuria. No hematuria. No obstructive symptoms. No discharge. No pain. No significant abnormal bleeding. MUSCULOSKELETAL: No musculoskeletal pain; no joint swelling. NEUROLOGICAL: Awake, alert, oriented to time, place and person. No headache. No neck pain. No syncope. No seizures. No dizziness. PSYCHIATRIC: Not anxious. No depression. No suicidal thoughts. No homicidal thoughts. SKIN: No rash. No lesions. No wounds. ENDOCRINE: No unexplained weight loss. No weight gain. HEMATOLOGIC/LYMPHATIC: No anemia. No purpura. No petechiae. No prolonged or excessive bleeding. No palpable lymph nodes. PHYSICAL EXAMINATION: GENERAL: The patient is awake, alert and oriented, lying in bed in no distress. VITAL SIGNS: Temperature 97.6 F, Pulse 74, Respiratory Rate 18, BP 150/99, Pulse Ox 98% HEENT: Head normocephalic, atraumatic. Eyes: Extraocular muscles are intact. Pupils are equal, round and reactive to light and accommodation. Ears: Left TM with perforation. Right TM with bloody effusion. No lesions. Nose appeared normal. Throat: No exudate or erythema. NECK: Supple. No JVD, no carotid bruit. No lymphadenopathy or thyromegaly. LUNGS: Diminished breath sounds. Clear to auscultation. Percussion note normal. Chest symmetrical. HEART: S1, S2, no S3. No murmurs. No cyanosis or clubbing. No ascites. Pulses: Dorsalis pedis and posterior tibial pulses +1 to +2 both sides. ABDOMEN: Soft. Non-tender. Bowel sounds active. No CVA tenderness. No mass felt. EXTREMITIES: No edema. Full range of motion of all extremities, equal. NEUROLOGIC: No focal deficit. Cranial nerves II through XII are grossly intact. No headache. No double vision. SKIN: Not dry. Intact. Turgor-normal. LYMPHATIC: No palpable lymph nodes/no lymphedema. MUSCULOSKELETAL: Normal joints with no swelling. Muscle tone is normal. LAB REVIEW: 06/14/21 04:58 06/14/21 04:58 06/14/21 04:58: Sodium 138.2, Potassium 3.99, Chloride 111.6 H, Carbon Dioxide 20.2 L, Anion Gap 10.39, BUN 15.2, Creatinine 0.96, Estimated GFR (MDRD) 63.00, BUN/Creatinine Ratio 15.83, Glucose 111.7 H, Calcium 7.82 L, Total Bilirubin 0.30, AST 39.4 H, ALT 41.6 H, Alkaline Phosphatase 75.6, Total Protein 6.74, Albumin 3.63, Globulin 3.11, Albumin/Globulin Ratio 1.16 06/14/21 04:58: WBC 6.88, RBC 3.86 L, Hgb 11.4 L, Hct 34.8 L, MCV 90.2, MCH 29.5, MCHC 32.8, RDW Coeff of Jennyfer 15.8 H, Plt Count 199, Immature Gran % (Auto) 0.4, Neut % (Auto) 46.7, Lymph % (Auto) 44.0, [place] % (Auto) 7.4, Eos % (Auto) 0.6, Baso % (Auto) 0.9, Neut # (Auto) 3.2, Lymph # (Auto) 3.0, [place] # (Auto) 0.5, Eos # (Auto) 0.0, Baso # (Auto) 0.1, Immature Gran # (Auto) 0.0 ASSESSMENT: Please see below. 1. Bilateral acute otitis media 2. Parainfluenza A 3. Acute bronchitis 4. Dehydration. PLAN: 1. Discharge home 2. Omnicef 300mg BID for 7 days 3. Prednisone 10mg daily for 5 days 4. Continue Ciprofloxacin drops four drops BID for 7 days 5. Refer to Dr. Baldwin for followup for left TM perforation 6. Followup in office Plan and coordination of the patient's care discussed in the presence of Press Operator Heavy Duty and nurse. SCRIBED BY: Hanane CALVERTist scribed while in presence of service performed by Dr. Layne/Starr Carreon APRN on 06/14/21 ([id number])
--- NOTE | 2021-06-14 09:45 | DS ---
DATE OF SERVICE: 06/14/21 FINAL DIAGNOSIS: 1. Bilateral acute otitis media with perforation of the left TM 2. Parainfluenza A 3. Acute bronchitis 4. Dehydration which has resolved DISCHARGE INSTRUCTIONS: Discharge home today. Followup with Dr. Layne/Starr Carreon APRN/Isabel Savage APRN. Continue same medications. Appointment with Dr. Baldwin on FridayJune 26 at 12:45. MEDICATIONS AT DISCHARGE: Carvedilol 6.25mg PO BID Klonopin 1mg PO BID PRN Aspirin 81mg pO daily Amitriptyline 75mg PO bedtime Levocetirizine 5mg PO daily Zonisamide 100mg PO BID Vitamin D3 50mcg PO daily Vitamin C 500mg pO BID Cefdinir 300mg PO Q 12 hours [id number] PO daily Ciprofloxacin 4 drops OTIC BID NEW PRESCRIPTIONS: CIPRO EAR DROPS 4 DROPS IN EACH EAR TWICE DAILY FOR 7 DAYS OMNICEF 300MG BY MOUTH TWICE DAILY FOR 7 DAYS PREDNISONE 10MG DAILY BY MOUTH FOR 5 DAYS DIET INSTRUCTIONS: Continue Regular/Cardiac diet. Avoid excess salt. ACTIVITY: Increase activity as tolerated. HOSPITAL COURSE: 45 year old female presented to the ER with fever, weakness and bilateral ear pain and cough and congestion for past few days. She had been started on a Z- pack and Prednisone as an outpatient and seen in our office. She reported to have some bloody drainage from both of her ears. She was found to be severely hypokalemic with potassium of 2.7. She had a low grade temperature of 99.2, tachycardic at 107, respirations were increased, pulse ox was good at 99%. Upon examination of both ears she had bilateral acute otitis media with purulent effusion on the right TM. Chest x-ray showed no acute pulmonary disease. CT of the chest was done because of an elevated D-Dimer CTA was done which showed an indeterminate 0.7cm right lower lobe nodule. Otherwise no acute findings. U/A was normal. She was admitted and placed on IV fluids normal saline at 100cc an hour with 20meq of Potassium along with Potassium 20meq PO QID. Also started on Rocephin 1 gram IV daily and continued with Ciprodex solution four drops twice a day. She was started on Solu-Medrol 100mg IV Q 12 hours. Over the course of several days she did improve. Cough and congestion improved. The drainage from her ear stopped. Again, she was noted to have a large perforation of left TM so we do advised her to followup with Dr. Baldwin. We will make the referral. She is to go home on Omnicef 300mg PO BID for the next 7 days along with Prednisone 10mg daily for 5 days. She is continue the drops for the next 7 days, 4 drops BID and then she will followup in our office. She is discharged in stable condition. TIME SPENT: More than 60 minutes. JUMA
--- NOTE | 2021-06-14 13:00 | PN ---
DATE OF SERVICE: 06/13/21 SUBJECTIVE: 45 year old white female hospitalized with hypokalemia, bilateral external otitis media, parainfluenza positive. Still symptoms of influenza with generalized aches and pains. She also has history of migraine headaches and fibromyalgia. REVIEW OF SYSTEMS: CONSTITUTIONAL: No night sweats Still has tired and fatigued feeling. No fatigue, malaise, lethargy. No fever or chills. HEENT: Eyes: No visual changes. No eye pain. No eye discharge. ENT: No runny nose. No epistaxis. No sinus pain. No sore throat. No odynophagia. No congestion. RESPIRATORY: No cough, no congestion. No hemoptysis. No shortness of breath. CARDIOVASCULAR: No angina symptoms. No CHF symptoms. No atypical chest pain for CAD. No palpitations. No PND. No orthopnea. GASTROINTESTINAL: No abdominal pain. No nausea or vomiting. No diarrhea or constipation. No hematemesis. No hematochezia. Appetite is not good. GENITOURINARY: No urgency. No frequency. No dysuria. No hematuria. No obstructive symptoms. No discharge. No pain. No significant abnormal bleeding. MUSCULOSKELETAL: No musculoskeletal pain; no joint swelling. NEUROLOGICAL: No headache. No neck pain. No syncope. No seizures. No dizziness. PSYCHIATRIC: Not anxious. No depression. No suicidal thoughts. No homicidal thoughts. SKIN: No rash. No lesions. No wounds. ENDOCRINE: No unexplained weight loss. No weight gain. HEMATOLOGIC/LYMPHATIC: No anemia. No purpura. No petechiae. No prolonged or excessive bleeding. No palpable lymph nodes. PHYSICAL EXAMINATION: VITAL SIGNS: Temperature 96.8, pulse 78, respiratory rate 16, blood pressure 131/88, pulse ox 96%. HEENT: Head normocephalic, atraumatic. Eyes: Extraocular muscles are intact. Pupils are equal, round and reactive to light and accommodation. Ears: No lesions. Nose appeared normal. Throat: No exudate or erythema. NECK: Supple. No JVD, no carotid bruit. No lymphadenopathy or thyromegaly. LUNGS: Decreased breath sounds but clear to auscultation. Percussion note normal. Chest symmetrical. HEART: S1, S2, no S3. No murmurs. No cyanosis or clubbing. No ascites. Pulses: Dorsalis pedis and posterior tibial pulses +1 to +2 bilaterally. ABDOMEN: Soft. Nontender. Bowel sounds active. No CVA tenderness. No mass felt. EXTREMITIES: No edema. Full range of motion of all extremities, equal. NEUROLOGIC: No focal deficit. Cranial nerves II through XII are grossly intact. No headache. No double vision. SKIN: Not dry. Intact. Turgor - normal. LYMPHATIC: No palpable lymph nodes/no lymphedema. MUSCULOSKELETAL: Normal joints with no swelling. Muscle tone is normal. LABS: Hgb 11.6, hct 35, WBC 7,300 normal differential, creatinine 0.8, BUN 18, potassium 3.7 ASSESSMENT: 1. Parainfluenza A with generalized fatigue and tired feeling, seems to be still there. We will give her 1 cc Decadron and 15mg IV Toradol and see how she does 2. Hypokalemia seems to have resolved. Potassium is 3.71 3. External otitis media stable. TIME SPENT: More than 30 minutes. Plan and coordination of the patient's care discussed in the presence of nurse. JUMA
--- NOTE | 2021-06-15 11:10 | PN ---
DATE OF SERVICE: 06/12/21 SUBJECTIVE: The patient was seen and examined with the Nurse Practitioner. The patient has parainfluenza A, still weak and fatigue. The patient is being given Potassium supplements, antibiotics and steroids. Cardiovascular status is stable. Respiratory status is stable. The patient is COVID negative. TIME SPENT: More than 30 minutes. Plan and coordination of the patient's care discussed in the presence of nurse. JUMA
--- NOTE | 2021-06-15 11:22 | PN ---
DATE OF SERVICE: 06/14/21 SUBJECTIVE: The patient was seen and examined with the Nurse Practitioner. The patient did not have any chest pain throughout the stay and chest pain was noncardiac, sharp shooting pain, entire cardiac workup with negative with EKG normal sinus rhythm. No acute change. Did not have any evidence of coronary insufficiency. The patient has influenza and complications from it generalized body aches and ear ache. The patient is going to be discharged home with antibiotics. TIME SPENT: More than 30 minutes. Plan and coordination of the patient's care discussed in the presence of nurse. JUMA
--- NOTE | 2021-07-02 14:17 | HP ---
DATE OF SERVICE: 06/11/21 REASON FOR HOSPITALIZATION/HISTORY OF PRESENT ILLNESS: 45 year old white female presented to the emergency room complaining of cough, ear ache with blood drainage and states that she has been on Zithromax and steroids and continues to use ear drops. PAST MEDICAL HISTORY: Left hip pain Mitral valve prolapse History of normal stress on 03/[address] Ragland Depression Migraine headache Left hip bursitis Fibromyalgia Dyslipidemia Hypertension History of PFO Noncompliant with medications, lifestyle and followup and recommendation COVID Pneumonia 11/14. PAST SURGICAL HISTORY: Cholecystectomy Hysterectomy REVIEW OF SYSTEMS: CONSTITUTIONAL: No night sweats. No fatigue, malaise, lethargy. No fever or chills. Weakness. HEENT: Eyes: No visual changes. No eye pain. No eye discharge. ENT: Bilateral ear ache with right blood drainage from ear. No runny nose. No epistaxis. No sinus pain. No sore throat. No odynophagia. No ear pain. No congestion. RESPIRATORY: Cough, no congestion. No hemoptysis. No shortness of breath. CARDIOVASCULAR: No angina symptoms. No CHF symptoms. No atypical chest pain for CAD. No palpitations. No PND. No orthopnea. GASTROINTESTINAL: No abdominal pain. No nausea or vomiting. No diarrhea or constipation. No hematemesis. No hematochezia. GENITOURINARY: No urgency. No frequency. No dysuria. No hematuria. No obstructive symptoms. No discharge. No pain. No significant abnormal bleeding. MUSCULOSKELETAL: No musculoskeletal pain. No joint swelling. No arthritis. NEUROLOGICAL: No headache. No neck pain. No syncope. No seizures. No dizziness. PSYCHIATRIC: Not anxious. No depression. No suicidal thoughts. No homicidal thoughts. SKIN: No rash. No lesions. No wounds. ENDOCRINE: No unexplained weight loss. No weight gain. HEMATOLOGIC/LYMPHATIC: No anemia. No purpura. No petechiae. No prolonged or excessive bleeding. No palpable lymph nodes. PERSONAL/FAMILY/SOCIAL HISTORY: She is and lives at home with her . Nonsmoker. no alcohol or illicit drug use. MEDICATIONS: Carvedilol 6.25mg PO BID Klonopin 1mg PO BID PRN Aspirin 81mg PO daily Amitriptyline 75mg PO BEDTIME Ciprodex two drops BOTH EARS BID Levocetirizine 5mg PO daily Zonisamide 100mg PO BID Codeine-Guaifenesin 10ml PO QID PRN Vitamin D 3 50mcg PO daily Vitamin C 500mg PO BID ALLERGIES: Duloxetine Escitalopram Pseudoephedrine Sumatriptan Triprolidine PHYSICAL EXAMINATION: VITAL SIGNS: Temperature 99.2, heart rate 107, respiratory rate 28, blood pressure 156/102, pulse ox 99% on room air. HEENT: Head normocephalic, atraumatic. Eyes: Extraocular muscles are intact. Pupils are equal, round and reactive to light and accommodation. Ears: No lesions. Nose appeared normal. Throat: No exudate or erythema. Left TM with perforation and serous sanguinous drainage, right TM with bloody effusion. NECK: Supple. No JVD, no carotid bruit. No lymphadenopathy or thyromegaly. LUNGS: Diminished breath sounds. Clear to auscultation. Percussion note normal. Chest symmetrical. HEART: S1, S2, no S3. No murmur. No cyanosis or clubbing. No ascites. Pulses: Dorsalis pedis and posterior tibial pulses +1 to +2 bilaterally. ABDOMEN: Soft. Nontender. Bowel sounds active. No CVA tenderness. No mass felt. EXTREMITIES: No edema. Full range of motion of all extremities, equal. NEUROLOGIC: No focal deficit. Cranial nerves II through XII are grossly intact. No headache, no double vision or headache. SKIN: Not dry. Intact. Turgor - normal. LYMPHATIC: No palpable lymph nodes/no lymphedema. MUSCULOSKELETAL: Normal joints with no swelling. Muscle tone is normal. LABS: WBC 10.28, hgb 12.6, hct 38.2, plt count 211, sodium 138, potassium 2.73, BUN 8.7, creatinine 1.18, glucose 96, Chest x-ray showed no acute process. CT of chest shows indeterminate 0.7cm right lower lobe nodule, Mediastinal lymphnode enlargement. Respiratory panel positive for parainfluenza. ASSESSMENT: 1. Acute parainfluenza 2. Acute Hypokalemia 3. Hypertension 4. Viral syndrome 5. Acute bronchitis PLAN: 1. We will admit 2. Routine telemetry orders 3. CBC and CMP daily 4. Normal Saline IV with 20mek at 75cc and hour 5. 20meq PO Potassium TID 6. Start Rocephin 1 gram IV daily 7. 1cc Decadron IM daily 4mg 8. Continue Ciprodex ear drops two drops BID 9. Continue Home medications 10.Tylenol for fever. We will follow closely. TIME SPENT: More than 70 minutes. MTDD
== END 2021-06-14 10:25 | disposition home or self-care (01) | DRG 153 ==
LOC: ED 20:26 → MEDSURG A 23:16
PROVIDERS: ADMIT Internal Medicine; ATTEND Internal Medicine